=== PATIENT | female | born 1955 | race Caucasian/White ===

== ENCOUNTER 2019-12-17 17:34 | Emergency (ER) | payer OTHER ==
[~2019-12-17] VITALS: Ht 160 cm; Wt 90.9 kg
--- NOTE | 2019-12-17 17:54 | PHYS DOC ---
Past History Past Medical History: Anxiety, Depression, Hypertension, Migraines Past Surgical History: Cholecystectomy, Hysterectomy Alcohol Use: None General Adult EDM: Chief Complaint: HEADACHE HPI: HPI: " I am up here visiting with a friend and I got one of my migraine headaches...my BP is up ..and I am seeing spots...like when my BP get up to high..." " If I had one of my Clonidine or my nausea meds...I would have taken that.. It just I am up here from [facility]...." Patient is a 64 year old female who presents with above hx and complaints of headache. Patient states her headache is consistent with her occasional migraine headaches. Patient denies any specific fever or chills. No history of specific ill contacts. Recent travel from [facility]. No history of fever or chills. No history of trauma. No history of immunosuppression. Does have a history of chronic arthritis . Does have a history of chronic hypertension. Review of Systems: Review of Systems: Constitutional: Denies fever or chills Eyes: Denies change in visual acuity HENT: Denies nasal congestion or sore throat Respiratory: Denies cough or shortness of breath Cardiovascular: Denies chest pain or edema GI: Denies abdominal pain, , vomiting, bloody stools or diarrhea . Complains of nausea : Denies dysuria Musculoskeletal: Denies back pain or joint pain Integument: Denies rash Neurologic: Complains of 1 of her migraine headaches, denies focal weakness or sensory changes Endocrine: Denies polyuria or polydipsia Lymphatic: Denies swollen glands Psychiatric: Denies depression or anxiety Heart Score: HEART Score for Chest Pain: HEART Score for Chest Pain Response (Comments) Value History Slighlty/Non-Suspicious 0 Age >45 - < 65 1 Risk Factors 1 or 2 Risk Factors 1 Troponin < Normal Limit 0 Total 2 Risk Factors: Risk Factors: DM, Current or recent (<one month) smoker, HTN, HLP, family history of CAD, obesity. Risk Scores: Score 0 - 3: 2.5% MACE over next 6 weeks - Discharge Home Score 4 - 6: 20.3% MACE over next 6 weeks - Admit for Clinical Observation Score 7 - 10: 72.7% MACE over next 6 weeks - Early Invasive Strategies Family History: Family History: Noncontributory Current Medications: Current Meds: See nursing for home meds Allergies: Allergies: Allergies Coded Allergies Type Severity Reaction Last Updated Verified allopurinol Allergy Intermediate 12/17/19 Yes doxycycline Allergy Intermediate 12/17/19 Yes sulfamethoxazole Allergy Intermediate 12/17/19 Yes sumatriptan Allergy Intermediate ALLERGIC TO "TRIPTANS" 12/17/19 Yes trimethoprim Allergy Intermediate 12/17/19 Yes Physical Exam: PE: Constitutional: Moderate distress, non-toxic appearance. [] HENT: Normocephalic, atraumatic, bilateral external ears normal, oropharynx moist, no oral exudates, nose normal. [] Eyes: PERRLA, EOMI, conjunctiva normal, no discharge. Glasses Neck: Normal range of motion, no tenderness, supple, no stridor. [] Cardiovascular:Heart rate regular rhythm, no murmur [] PMI to the left Lungs & Thorax: Bilateral breath sounds equal at apex on aquscultation [] Abdomen: Bowel sounds normal, soft, no tenderness, no masses, no pulsatile masses. Obese Skin: Warm, dry, no erythema, no rash. [] Back: No tenderness, no CVA tenderness. [] Extremities: No tenderness, no cyanosis, no clubbing, ROM intact, trace ankle edema. [] No cording appreciated. Does have a right shoulder scar Neurologic: Alert and oriented X 3, n moves all extremities on request, distal sensory intact., no focal deficits noted. [] DTRs +2 patella. Terrazzo Tile Setter equal. No drift. Psychologic: Affect anxious, judgement normal, mood normal. [] Current Patient Data: Vital Signs: Vital Signs Date Time Temp Pulse Resp B/P (MAP) Pulse Ox O2 Delivery O2 Flow Rate FiO2 12/17/19 17:46 98.0 74 18 168/103 (124) 96 EKG: EKG: My interpretation EKG shows a sinus rhythm at 62 bpm. As slightly prolonged QT interval at 516 ms QTC is 527 ms . Left axis. No findings of acute STEMI with contralateral changes. [] Radiology/Procedures: Radiology/Procedures: [address] [address] IMAGING REPORT Signed PATIENT: NESHA JOHNSON Araceli ACCOUNT: [id number] : 1955 LOCATION: ER AGE: 64 SEX: F EXAM STATUS: REG ER ORD. PHYSICIAN: CHASE HILLMAN MD REASON: htn PROCEDURE: PORTABLE CHEST 1V AP portable chest 12/17/2019. Reason for exam: Hypertension. The film was obtained in lordotic projection. No infiltrate or effusion is seen. The heart appears enlarged. Pulmonary vascularity is not congested. There is been right shoulder replacement. IMPRESSION: Cardiomegaly. No acute infiltrate. Electronically signed by: Daniel Eduardo Jr., MD (12/17/2019 8:14 PM) [facility] DICTATED AND SIGNED BY: DANIEL EDUARDO Jr, MD DATE: 12/17/192013 CC: CHASE HILLMAN MD; PCP,NO ~ [][place] [address] IMAGING REPORT Signed PATIENT: NESHA JOHNSON ACCOUNT: [id number] : 1955 LOCATION: ER AGE: 64 SEX: F EXAM STATUS: REG ER ORD. PHYSICIAN: CHASE HILLMAN MD REASON: CHRISTINA,spotts PROCEDURE: CT HEAD WO CONTRAST CT head without contrast 12/17/2019. Reason for exam: Headache. Noncontrast images were performed. Exposure: One or more of the following individualized dose reduction techniques were utilized for this examination: 1. Automated exposure control 2. Adjustment of the mA and/or kV according to patient size 3. Use of iterative reconstruction technique. FINDINGS: There is no apparent intracranial mass, hemorrhage or abnormal extra-axial fluid collection. No area of abnormal density is seen in the brain. The ventricles and basilar cisterns are normally positioned. The paranasal sinuses and mastoid air cells are clear. No intraorbital abnormality is seen. IMPRESSION: No acute intracranial abnormality. Electronically signed by: Daniel Eduardo Jr., MD (12/17/2019 8:03 PM) [facility] DICTATED AND SIGNED BY: DANIEL EDUARDO Jr, MD DATE: 12/17/192002 CC: CHASE HILLMAN MD; PCP,NO ~ Course & Med Decision Making: Course & Med Decision Making Pertinent Labs and Imaging studies reviewed. (See chart for details) Pt. currently demanding discharge. Symptom free the last hour. Reviewed labs CT findings with patient. Patient declines admission at this time. States she will follow-up with her doctor in [place]. Patient was given prescription for Vicoprofen and Zofran. Patient may take Tylenol and ibuprofen for pain if pain is not controlled by Vicoprofen may try Vicoprofen. Take Zofran for nausea and vomiting. Patient return if any concerns. Patient declined spinal tap-ribs, complications and benefits discussed. Patient does exhibit UCAR capacity. Impression: 1. Migraine headache 2. Hypertension 3. History of arthritis 4. Elevated CRP 4.1 5.. [] Dragon Disclaimer: Dragon Disclaimer: This electronic medical record was generated, in whole or in part, using a voice recognition dictation system. Departure Departure: Disposition: HOME/RESIDENCE PRIOR TO ADM Condition: STABLE Referrals: PCP,NO (PCP) Scripts Hydrocodone/Ibuprofen (HYDROCODONE-IBUPROFEN 7.5-200 ) 1 Each Tablet 1 TAB PO PRN Q6HRS PRN for PAIN, #30 TAB 0 Refills Prov: CHASE HILLMAN MD 12/17/19 Ondansetron Hcl (ZOFRAN) 8 Mg Tablet 8 MG PO qidp for marked discomfort, #30 BOTTLE Prov: CHASE HILLMAN MD 12/17/19 Justification of Admission: Justification of Admission: Justification of Admission Dx: N/A Dragon Disclaimer This chart was dictated in whole or in part using Voice Recognition software in a busy, high-work load, and often noisy Emergency Department environment. It may contain unintended and wholly unrecognized errors or omissions. CHASE HILLMAN MD Dec 17, 2019 17:53
[2019-12-17] MEDS ORDERED: IV RINGERS SOLUTION,LACTATED 1,000 ML IV SCH (18:41)
[2019-12-17] MEDS ORDERED: cloNIDine TTS-2 1 PATCH PATCH TD ONE (18:45)
[2019-12-17] MEDS ORDERED: ONDANSETRON PF 4 MG/2 ML VIAL. IVP ONE (18:45)
[2019-12-17 19:20] LABS: BASO % 1 % (0-3); EOS # 0.1 x10^3/uL (0.0-0.7); EOS % 1 % (0-3); HEMOGLOBIN 11.4 g/dL (12.0-15.5); LYMPH # 2.6 x10^3/uL (1.0-4.8); LYMPH % 39 % (24-48); MEAN CORPUSCULAR HEMOGLOBIN 25 pg (25-35); MEAN CORPUSCULAR HGB CONC 32 g/dL (31-37); MEAN CORPUSCULAR VOLUME 79 fL (79-100); MONO # 0.6 x10^3/uL (0.0-1.1); MONO % 9 % (0-9); NEUT # 3.3 x10^3uL (1.8-7.7); NEUT % 50 % (31-73); PLATELET COUNT 285 x10^3/uL (140-400); RED BLOOD COUNT 4.54 x10^6/uL (3.50-5.40); RED CELL DISTRIBUTION WIDTH 15.8 % (11.5-14.5); WHITE BLOOD COUNT 6.5 x10^3/uL (4.0-11.0)
[2019-12-17 19:34] LABS: CALCIUM 8.6 mg/dL (8.5-10.1); GFR 56.2; POTASSIUM 3.4 mmol/L (3.5-5.1)
[2019-12-17 19:46] LABS: ALBUMIN 3.4 g/dL (3.4-5.0); C REACTIVE PROTEIN 4.1 mg/L (0-3.3); DIRECT BILIRUBIN 0.1 mg/dL (0.0-0.2); MAGNESIUM 2.1 mg/dL (1.8-2.4); TOTAL BILIRUBIN 0.2 mg/dL (0.2-1.0); TOTAL PROTEIN 7.3 g/dL (6.4-8.2)
--- NOTE | 2019-12-17 20:06 | RAD ---
CT head without contrast 12/17/2019. Reason for exam: Headache. Noncontrast images were performed. Exposure: One or more of the following individualized dose reduction techniques were utilized for this examination: 1. Automated exposure control 2. Adjustment of the mA and/or kV according to patient size 3. Use of iterative reconstruction technique. FINDINGS: There is no apparent intracranial mass, hemorrhage or abnormal extra-axial fluid collection. No area of abnormal density is seen in the brain. The ventricles and basilar cisterns are normally positioned. The paranasal sinuses and mastoid air cells are clear. No intraorbital abnormality is seen. IMPRESSION: No acute intracranial abnormality. Electronically signed by: Neto Eduardo Jr., MD (12/17/2019 8:03 PM) [facility]
[2019-12-17 20:07] LABS: AMPHETAMINE/METHAMPHETAMINE NEG (NEG); BARBITURATES NEG (NEG); BENZODIAZEPINES NEG (NEG); CANNABINOIDS NEG (NEG); COCAINE NEG (NEG); METHADONE NEG (NEG); OPIATES NEG (NEG); PHENCYCLIDINE NEG (NEG)
[2019-12-17 20:11] LABS: BACTERIA,URINE FEW /HPF (0-FEW); BILIRUBIN,URINE NEG (NEG); CLARITY,URINE HAZY; COLOR,URINE YELLOW; GLUCOSE,URINE NEG (NEG); NITRITE,URINE NEG (NEG); SQUAMOUS EPITHELIAL CELL,UR FEW /LPF; UROBILINOGEN,URINE 0.2 mg/dL (0.2 mg/dL)
--- NOTE | 2019-12-17 20:17 | RAD ---
AP portable chest 12/17/2019. Reason for exam: Hypertension. The film was obtained in lordotic projection. No infiltrate or effusion is seen. The heart appears enlarged. Pulmonary vascularity is not congested. There is been right shoulder replacement. IMPRESSION: Cardiomegaly. No acute infiltrate. Electronically signed by: Neto Eduardo Jr., MD (12/17/2019 8:14 PM) [facility]
--- NOTE | 2019-12-17 20:54 | EKG ---
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
[2019-12-17] MEDS ORDERED: cloNIDine HCL 0.1 MG TABLET PO ONE (22:00)
[2019-12-17] MEDS ORDERED: HYDR-1179 PO (22:11)
[2019-12-17] MEDS ORDERED: ONDA8TAB9 PO (22:11)
[2019-12-17 22:19] VITALS: BP 156/87
[2019-12-18 13:46] LABS: THYROID STIM HORMONE (TSH) 2.937 uIU/mL (0.358-3.740)
== END 2019-12-17 22:22 | disposition home or self-care (01) ==
LOC: ER 17:34
DX: G43.909 Migraine, unspecified, not intractable, without status migrainosus (principal); I10 Essential (primary) hypertension; R79.82 Elevated C-reactive protein (CRP); M19.90 Unspecified osteoarthritis, unspecified site; F41.9 Anxiety disorder, unspecified; F32.9 Major depressive disorder, single episode, unspecified; Z88.2 Allergy status to sulfonamides; Z88.1 Allergy status to other antibiotic agents; Z88.8 Allergy status to other drugs, medicaments and biological substances
CPT/HCPCS: 36415; 70450; 71045; 80048; 80061; 80076; 80307; 81001; 82550; 83690; 83735; 83880; 84443; 84484; 85025; 85610; 85730; 86140; 87086; 93005; 96361; 96374; 96375; 96376; 99285; J2405; J3010; J7120

== ENCOUNTER 2021-03-23 08:59 | Emergency (ER) | payer MEDICARE, OTHER ==
[~2021-03-23] VITALS: Ht 160 cm; Wt 91.0 kg
[~2021-03-23 08:59] MED LIST: HYDR-1179 PO; ONDA8TAB9 PO
[2021-03-23 09:08] VITALS: BP 153/97
--- NOTE | 2021-03-23 09:30 | PHYS DOC ---
Past History Past Medical History: Anxiety, Depression, Hypertension, Migraines Past Surgical History: Cholecystectomy, Hysterectomy Additional Past Surgical Histo: right shoulder surgery Alcohol Use: None General Adult EDM: Chief Complaint: HAND PROBLEM HPI: HPI: Patient is a 62-year-old female coming in for right hand pain and swelling. Patient tripped over her dog 3 days ago and tried to catch herself with her right hand. Denies any other injuries. Patient has good ice to the head but the swelling is getting worse. No other complaints, patient is right-handed Review of Systems: Review of Systems: All other systems within normal limits except for as noted in the HPI Allergies: Allergies: Allergies Coded Allergies Type Severity Reaction Last Updated Verified allopurinol Allergy Intermediate 12/17/19 Yes doxycycline Allergy Intermediate 12/17/19 Yes sulfamethoxazole Allergy Intermediate 12/17/19 Yes sumatriptan Allergy Intermediate ALLERGIC TO "TRIPTANS" 12/17/19 Yes trimethoprim Allergy Intermediate 12/17/19 Yes Physical Exam: PE: Constitutional: Well developed, well nourished, no acute distress, non-toxic appearance. [] HENT: Normocephalic, atraumatic, bilateral external ears normal, nose normal. [] Eyes: PERRLA, conjunctiva normal, no discharge. [] Neck: No rigidity, supple, no stridor. [] Cardiovascular: Regular rate and rhythm, brisk cap refill [] Lungs & Thorax: Non labored symmetric respirations, no tachypnea or respiratory distress [] Abdomen: Soft, nondistended. Skin: Warm, dry, no erythema, no rash. Ecchymosis to the ulnar side of right hand [] Back: Unremarkable Extremities: No deformities, range of motion grossly intact, no lower extremity edema. Right hand exam: Swelling diffusely to right hand and wrist, tenderness to palpation throughout, sensation and range of motion intact [] Neurologic: Alert and oriented X 3, no focal deficits noted. [] Psychologic: Affect normal, judgement normal, mood normal. [] Current Patient Data: Vital Signs: Vital Signs Date Time Temp Pulse Resp B/P (MAP) Pulse Ox O2 Delivery O2 Flow Rate FiO2 03/23/21 09:08 98.4 79 16 153/97 (115) 98 Room Air EKG: EKG: [] Radiology/Procedures: Radiology/Procedures: [address] [place] [address] IMAGING REPORT Signed PATIENT: NESHA JOHNSON ACCOUNT: [id number] : 1955 LOCATION: ER AGE: 65 SEX: F EXAM STATUS: REG ER ORD. PHYSICIAN: MELANIA HERNANDES MD REASON: fall PROCEDURE: HAND RIGHT 3V EXAM: Right hand, 3 views; right forearm, 2 views. HISTORY: Fall. Pain. COMPARISON: None. FINDINGS: Right hand: 3 views of the right hand are obtained. There is lucency traversing the base of the second or third metacarpal in the lateral projection. This is not confirmed on additional projections. There is a mildly displaced fracture of the distal fifth metacarpal. There is dorsal hand soft tissue swelling. There is first carpometacarpal joint space narrowing, subchondral sclerosis and spurring. Right forearm: 2 views of the right forearm are obtained. There is no fracture, dislocation or subluxation. There is soft tissue swelling. IMPRESSION: 1. Mildly displaced fracture of the distal fifth metacarpal. 2. Suspected nondisplaced fracture at the base of the third or second metacarpals in the lateral projection. Correlate for pain in this location. 3. Dorsal hand and forearm soft tissue swelling. Electronically signed by: Tarah Ruth MD (03/23/2021 9:53 AM) [id number] DICTATED AND SIGNED BY: TARAH RUTH MD DATE: 03/23/21 0950 CC: MELANIA HERNANDES MD; PCP,NO ~MTH0 0 [] Heart Score: C/O Chest Pain: No Risk Factors: Risk Factors: DM, Current or recent (<one month) smoker, HTN, HLP, family history of CAD, obesity. Risk Scores: Score 0 - 3: 2.5% MACE over next 6 weeks - Discharge Home Score 4 - 6: 20.3% MACE over next 6 weeks - Admit for Clinical Observation Score 7 - 10: 72.7% MACE over next 6 weeks - Early Invasive Strategies Course & Med Decision Making: Course & Med Decision Making Pertinent Labs and Imaging studies reviewed. (See chart for details) [] Draggerald Disclaimer: Draggerald Disclaimer: This electronic medical record was generated, in whole or in part, using a voice recognition dictation system. Departure Departure: Impression: Primary Impression: Fracture of metacarpal of right hand, closed Disposition: HOME / SELF CARE / HOMELESS Condition: STABLE Referrals: WALESKA GIPSON Jr. DO Patient Instructions: Hand Fracture, Fifth Metacarpal Scripts Acetaminophen With Codeine (ACETAMINOPHEN-COD #3 TABLET) 1 Each Tablet 1 TAB PO PRN Q6HRS PRN for PAIN for 3 Days, #12 TAB Prov: MELANIA HERNANDES MD 03/23/21 MELANIA HERNANDES MD Mar 23, 2021 09:30
--- NOTE | 2021-03-23 09:55 | RAD ---
EXAM: Right hand, 3 views; right forearm, 2 views. HISTORY: Fall. Pain. COMPARISON: None. FINDINGS: Right hand: 3 views of the right hand are obtained. There is lucency traversing the base of the secon d or third metacarpal in the lateral projection. This is not confirmed on additional projections. The re is a mildly displaced fracture of the distal fifth metacarpal. There is dorsal hand soft tissue sw elling. There is first carpometacarpal joint space narrowing, subchondral sclerosis and spurring. Right forearm: 2 views of the right forearm are obtained. There is no fracture, dislocation or sublux ation. There is soft tissue swelling. IMPRESSION: 1. Mildly displaced fracture of the distal fifth metacarpal. 2. Suspected nondisplaced fracture at the base of the third or second metacarpals in the lateral proj ection. Correlate for pain in this location. 3. Dorsal hand and forearm soft tissue swelling. Electronically signed by: Tarah Gong MD (03/23/2021 9:53 AM) [id number]
[2021-03-23] MEDS ORDERED: ACET1TAB33 PO (10:09)
[2021-03-23] MEDS ORDERED: HYDROcodone/APAP 5/325MG 1 TAB TABLET PO ONE (10:30)
[2021-03-23] MEDS ORDERED: HYDROcodone/APAP 5/325MG 1 TAB TABLET ONE (10:39)
== END 2021-03-23 10:56 | disposition home or self-care (01) ==
LOC: ER 08:59
DX: S62.306A Unspecified fracture of fifth metacarpal bone, right hand, initial encounter for closed fracture (principal); F41.9 Anxiety disorder, unspecified; F32.9 Major depressive disorder, single episode, unspecified; I10 Essential (primary) hypertension; G43.909 Migraine, unspecified, not intractable, without status migrainosus; Z88.1 Allergy status to other antibiotic agents; Z88.2 Allergy status to sulfonamides; Z88.8 Allergy status to other drugs, medicaments and biological substances; W01.0XXA Fall on same level from slipping, tripping and stumbling without subsequent striking against object, initial encounter; Y93.89 Activity, other specified; Y92.89 Other specified places as the place of occurrence of the external cause; Y99.8 Other external cause status
CPT/HCPCS: 29125; 73090; 73130; 99283

== ENCOUNTER 2021-03-28 15:12 | Emergency (ER) | payer MEDICARE ==
[~2021-03-28] VITALS: Ht 160 cm; Wt 91.0 kg
[~2021-03-28 15:12] MED LIST changes: +ACET1TAB33 PO
[2021-03-28 16:11] VITALS: BP 153/97
--- NOTE | 2021-03-28 16:14 | PHYS DOC ---
Past History Past Medical History: Anxiety, Depression, Hypertension, Migraines Past Surgical History: Cholecystectomy, Hysterectomy Additional Past Surgical Histo: right shoulder surgery Alcohol Use: None Adult General Chief Complaint Chief Complaint: PAIN CONTROL HPI HPI Patient is a 65-year-old female presenting via POV for uncontrolled pain. She was seen at our facility 03/23/2021 after tripping over her dog and suffered multiple fractures of her right hand. She was given Tylenol 3 prescription with adequate splint and sent home. She took all medications as prescribed but co ntinues to report uncontrolled pain even while taking this medication. Motor or sensory neuro function of right upper extremity is intact, patient just reports ongoing uncontrolled pain and requesting additional pain medication as Tylenol and/or ibuprofen has not been sufficiently alleviating her symptoms Review of Systems Review of Systems Fourteen body systems of review of systems have been reviewed. See HPI for pertinent positives and negative responses, other king all other systems are negative, non-pertinent or non-contributory Allergies Allergies Allergies Coded Allergies Type Severity Reaction Last Updated Verified allopurinol Allergy Intermediate 12/17/19 Yes doxycycline Allergy Intermediate 12/17/19 Yes sulfamethoxazole Allergy Intermediate 12/17/19 Yes sumatriptan Allergy Intermediate ALLERGIC TO "TRIPTANS" 12/17/19 Yes trimethoprim Allergy Intermediate 12/17/19 Yes Physical Exam Physical Exam Constitutional: Well developed, well nourished, no acute distress, non-toxic appearance. HENT: Normocephalic, atraumatic, bilateral external ears normal, oropharynx moist, no oral exudates, nose normal. Eyes: PERRLA, EOMI, conjunctiva normal, no discharge. Neck: Normal range of motion, no tenderness, supple, no stridor. Cardiovascular: Heart rate regular per monitor Lungs & Thorax: No respiratory distress or accessory muscle use, bilateral chest rise Abdomen: Abdomen soft, non-tender, bowel sounds present in all quadrants, no guarding or rebound, nonacute abdomen. Skin: Warm, dry, no erythema, no rash. Back: No tenderness, no CVA tenderness. Extremities: Well-appearing right upper extremity short arm splint with adequate motor or sensory and neuro function as noted below, cap refill of all distal fingers less than 3 seconds, no cyanosis, no clubbing, ROM intact, no edema. Neurologic: Alert and oriented X 3, normal motor & sensory function, no focal deficits noted. Psychologic: Depressed affect and mood EKG EKG [] Radiology/Procedures Radiology/Procedures EXAM: Right hand, 3 views; right forearm, 2 views. HISTORY: Fall. Pain. COMPARISON: None. FINDINGS: Right hand: 3 views of the right hand are obtained. There is lucency traversing the base of the second or third metacarpal in the lateral projection. This is not confirmed on additional projections. There is a mildly displaced fracture of the distal fifth metacarpal. There is dorsal hand soft tissue swelling. There is first carpometacarpal joint space narrowing, subchondral sclerosis and spurring. Right forearm: 2 views of the right forearm are obtained. There is no fracture, dislocation or subluxation. There is soft tissue swelling. IMPRESSION: 1. Mildly displaced fracture of the distal fifth metacarpal. 2. Suspected nondisplaced fracture at the base of the third or second metacarpals in the lateral projection. Correlate for pain in this location. 3. Dorsal hand and forearm soft tissue swelling. Electronically signed by: Tarah Gong MD (03/23/2021 9:53 AM) [id number] Heart Score C/O Chest Pain: No Risk Factors: Risk Factors: DM, Current or recent (<one month) smoker, HTN, HLP, family history of CAD, obesity. Risk Scores: Risk Factors: DM, Current or recent (<one month) smoker, HTN, HLP, family history of CAD, obesity. Course & Med Decision Making Course & Med Decision Making ABCs unremarkable HPI and physical exam nonconcerning for any emergent or surgical issues I reviewed recent ER visit notes and radiograph findings. I feel that patient's complaint is legitimate, I feel that more narcotic pain medication is warranted especially given the type of fracture she sustained with ongoing uncontrolled pain Joint decision made to administer short-term dose of [place] with close outpatient primary care provider follow-up with recommendations for Ortho consultation which she has yet to schedule Strict return precautions were discussed with good understanding by patient, all questions and concerns addressed prior to ER departure Sarah Disclaimer Dragon Disclaimer This electronic medical record was generated, in whole or in part, using a voice recognition dictation system. Departure Departure: Impression: Primary Impression: Hand fracture, right Disposition: HOME / SELF CARE / HOMELESS Condition: STABLE Referrals: PCP,NO (PCP) Additional Instructions: As discussed prior to your departure, you were recently diagnosed with mildly displaced fracture of your right distal pinky finger in addition to a suspected nondisplaced fracture at the base of your second and/or third metacarpals. There is no emergent surgical indications or need for hospital transfer. With that said your pain is uncontrolled and has been with previously prescribed medications. As such, risk versus benefits were discussed with you and you are excepting my prescription for opioid pain medication. Please take these as scheduled for severe pain only when ibuprofen and/or Tylenol is not sufficiently helping. Any concerning signs or symptoms present prior to outpatient follow- up please do not hesitate to come back for repeat evaluation. It was a pleasure to take care of you and I wish you the best going forward Scripts Hydrocodone Bit/Acetaminophen (HYDROCODONE-APAP 7.5-325 ) 1 Each Tablet 1 TAB PO PRN Q6HRS PRN for PAIN, #20 TAB 0 Refills Prov: DAYANA DIAZ DO 03/28/21 DAYANA DIAZ DO Mar 28, 2021 16:14
[2021-03-28] MEDS ORDERED: HYDROcodone/APAP 7.5/325MG 1 TAB TABLET PO ONE (16:30)
[2021-03-28] MEDS ORDERED: HYDR-2765 PO (16:30)
== END 2021-03-28 16:58 | disposition home or self-care (01) ==
LOC: ER 15:20
DX: S62.306A Unspecified fracture of fifth metacarpal bone, right hand, initial encounter for closed fracture (principal); I10 Essential (primary) hypertension; G43.909 Migraine, unspecified, not intractable, without status migrainosus; Z88.1 Allergy status to other antibiotic agents; Z88.2 Allergy status to sulfonamides; Z88.8 Allergy status to other drugs, medicaments and biological substances; W01.0XXA Fall on same level from slipping, tripping and stumbling without subsequent striking against object, initial encounter; Y93.89 Activity, other specified; Y92.89 Other specified places as the place of occurrence of the external cause; Y99.8 Other external cause status
CPT/HCPCS: 29125; 99283

== ENCOUNTER 2021-04-06 15:49 | Emergency (ER) | payer MEDICARE ==
[~2021-04-06] VITALS: Ht 160 cm; Wt 94.0 kg
[~2021-04-06 15:49] MED LIST changes: +HYDR-2765 PO
--- NOTE | 2021-04-06 16:25 | PHYS DOC ---
Past History Past Medical History: Anxiety, Depression, Hypertension, Migraines Past Surgical History: Cholecystectomy, Hysterectomy Additional Past Surgical Histo: right shoulder surgery Alcohol Use: None General Adult EDM: Chief Complaint: HEADACHE HPI: HPI: 65-year-old female presents with headache. She has had a headache for 2 days. She has a history of migraines and this headache feels similar to her previous. She has been unable to keep down fluids because she has been vomiting. If she tries to lay down or move around too much she gets nauseated and her headache intensifies. She denies any falls or trauma. Denies fever or chills. Review of Systems: Review of Systems: Constitutional: Denies fever or chills Eyes: Denies change in visual acuity HENT: Denies nasal congestion or sore throat Respiratory: Denies cough or shortness of breath Cardiovascular: Denies chest pain or edema GI: Nausea, vomiting. Denies abdominal pain, bloody stools or diarrhea : Denies dysuria Musculoskeletal: Denies back pain or joint pain Integument: Denies rash Neurologic: Headache. Denies focal weakness or sensory changes Endocrine: Denies polyuria or polydipsia Lymphatic: Denies swollen glands Psychiatric: Denies depression or anxiety Allergies: Allergies: Allergies Coded Allergies Type Severity Reaction Last Updated Verified allopurinol Allergy Intermediate 12/17/19 Yes doxycycline Allergy Intermediate 12/17/19 Yes sulfamethoxazole Allergy Intermediate 12/17/19 Yes sumatriptan Allergy Intermediate ALLERGIC TO "TRIPTANS" 12/17/19 Yes trimethoprim Allergy Intermediate 12/17/19 Yes Physical Exam: PE: Constitutional: Well developed, well nourished, morbidly obese, no acute distress, non-toxic appearance. [] HENT: Normocephalic, atraumatic, bilateral external ears normal, oropharynx moist, no oral exudates, nose normal. [] Eyes: PERRLA, EOMI, conjunctiva normal, no discharge. Photophobia. [] Neck: Normal range of motion, no tenderness, supple, no stridor. [] Cardiovascular: Heart rate regular rhythm, no murmur [] Lungs & Thorax: Bilateral breath sounds clear to auscultation [] Abdomen: Bowel sounds normal, soft, no tenderness, no masses, no pulsatile masses. [] Skin: Warm, dry, no erythema, no rash. [] Back: No tenderness, no CVA tenderness. [] Extremities: No tenderness, no cyanosis, no clubbing, ROM intact, no edema. Right hand and forearm in a splint. [] Neurologic: Alert and oriented X 3, normal motor function, normal sensory function, no focal deficits noted. [] Psychologic: Affect normal, judgement normal, mood normal. [] EKG: EKG: [] Radiology/Procedures: Radiology/Procedures: [] Heart Score: C/O Chest Pain: N/A Risk Factors: Risk Factors: DM, Current or recent (<one month) smoker, HTN, HLP, family history of CAD, obesity. Risk Scores: Score 0 - 3: 2.5% MACE over next 6 weeks - Discharge Home Score 4 - 6: 20.3% MACE over next 6 weeks - Admit for Clinical Observation Score 7 - 10: 72.7% MACE over next 6 weeks - Early Invasive Strategies Course & Med Decision Making: Course & Med Decision Making Pertinent Labs and Imaging studies reviewed. (See chart for details) The patient's labs are unremarkable. Urinalysis significant for urinary tract infection. I will treat her with a gram of Rocephin in the ER and discharge her on Keflex. For her headache we have given her 1 L normal saline, 30 mg of Toradol, 25 mg Benadryl, 10 mg of Reglan. Her headache has improved. She is stable for discharge at this time. [] Sarah Disclaimer: Sarah Disclaimer: This electronic medical record was generated, in whole or in part, using a voice recognition dictation system. Departure Departure: Impression: Primary Impression: Migraine headache Additional Impression: UTI (urinary tract infection) Disposition: HOME / SELF CARE / HOMELESS Condition: STABLE Referrals: NON,STAFF (PCP) Patient Instructions: Migraine Headache, [id number], Urinary Tract Infection, Izyb-oy-Xdez Scripts Cephalexin (CEPHALEXIN) 500 Mg Tablet 1 TAB PO TID for UTI for 3 Days, #9 TAB Prov: ELLIS HUGHES DO 04/06/21 ELLIS HUGHES DO Apr 06, 2021 16:25
[2021-04-06] MEDS ORDERED: ONDANSETRON PF 4 MG/2 ML VIAL. IVP ONE (16:30)
[2021-04-06] MEDS ORDERED: KETOROLAC 30 MG/ML VIAL. IVP ONE (16:30)
[2021-04-06] MEDS ORDERED: diphenhydrAMINE 50 MG/ML VIAL IVP ONE (16:30)
[2021-04-06] MEDS ORDERED: IV NORMAL SALINE 1,000ML 1,000 ML IV ONE (16:30)
[2021-04-06 17:07] LABS: BASO # 0.1 x10^3/uL (0.0-0.2); BASO % 1 % (0-3); EOS # 0.1 x10^3/uL (0.0-0.7); EOS % 1 % (0-3); HEMATOCRIT 38.2 % (36.0-47.0); HEMOGLOBIN 12.7 g/dL (12.0-15.5); LYMPH # 2.5 x10^3/uL (1.0-4.8); LYMPH % 33 % (24-48); MEAN CORPUSCULAR HEMOGLOBIN 29 pg (25-35); MEAN CORPUSCULAR HGB CONC 33 g/dL (31-37); MEAN CORPUSCULAR VOLUME 87 fL (79-100); MONO # 0.8 x10^3/uL (0.0-1.1); MONO % 10 % (0-9); NEUT # 4.2 x10^3uL (1.8-7.7); NEUT % 55 % (31-73); PLATELET COUNT 278 x10^3/uL (140-400); RED BLOOD COUNT 4.39 x10^6/uL (3.50-5.40); RED CELL DISTRIBUTION WIDTH 14.1 % (11.5-14.5); WHITE BLOOD COUNT 7.6 x10^3/uL (4.0-11.0)
[2021-04-06 17:12] LABS: BACTERIA,URINE MOD /HPF (0-FEW); BILIRUBIN,URINE NEG (NEG); CLARITY,URINE CLEAR; COLOR,URINE YELLOW; GLUCOSE,URINE NEG (NEG); NITRITE,URINE NEG (NEG); RBC,URINE OCC /HPF (0-2); UROBILINOGEN,URINE 0.2 mg/dL (0.2 mg/dL); WBC,URINE >40 /HPF (0-4)
[2021-04-06 17:12] LABS: CALCIUM 8.6 mg/dL (8.5-10.1); CREATININE 0.9 mg/dL (0.6-1.0); GFR 63.2; POTASSIUM 3.6 mmol/L (3.5-5.1)
[2021-04-06 17:13] LABS: SQUAMOUS EPITHELIAL CELL,UR MANY /LPF
[2021-04-06 17:18] LABS: ALBUMIN 3.8 g/dL (3.4-5.0); TOTAL BILIRUBIN 0.3 mg/dL (0.2-1.0); TOTAL PROTEIN 7.8 g/dL (6.4-8.2)
[2021-04-06] MEDS ORDERED: CEPH500T PO (17:46)
[2021-04-06] MEDS ORDERED: IV NORMAL SALINE 50ML 50 ML ONE (18:05)
[2021-04-06] MEDS ORDERED: cefTRIAXone SODIUM 1 GM VIAL ONE (18:06)
[2021-04-06] MEDS ORDERED: MORPHINE SULFATE 4 MG/ML DISP.SYRIN. IV ONE (18:15)
[2021-04-06 18:40] VITALS: BP 138/84
== END 2021-04-06 18:45 | disposition home or self-care (01) ==
LOC: ER 15:49
DX: G43.909 Migraine, unspecified, not intractable, without status migrainosus (principal); N39.0 Urinary tract infection, site not specified; I10 Essential (primary) hypertension; F41.9 Anxiety disorder, unspecified; F32.9 Major depressive disorder, single episode, unspecified; Z88.1 Allergy status to other antibiotic agents; Z88.8 Allergy status to other drugs, medicaments and biological substances
CPT/HCPCS: 36415; 80053; 81001; 85025; 87086; 96361; 96365; 96375; 99284; J0696; J1200; J1885; J2270; J2405; J7030

== ENCOUNTER 2021-04-09 15:09 | Emergency (ER) | payer MEDICARE ==
[~2021-04-09] VITALS: Ht 160 cm; Wt 92.0 kg
[~2021-04-09 15:09] MED LIST changes: +CEPH500T PO
--- NOTE | 2021-04-09 19:41 | PHYS DOC ---
Past History Past Medical History: Anxiety, Depression, Hypertension, Migraines Past Surgical History: Cholecystectomy, Hysterectomy Additional Past Surgical Histo: right shoulder surgery Alcohol Use: None Adult General Chief Complaint Chief Complaint: HEADACHE HPI HPI Patient is a 65-year-old female with a past medical history of migraines who presents with a chief complaint of migraine which started this morning after breakfast. States she gets about 2 migraines a week and this is similar in the fact that it is whole head, dull and achy in nature with some mild nausea but no vomiting. Denies any photophobia or phonophobia. States she did not take any medicines at home for this. Denies any recent travel, traumas, illnesses, fevers, changes in vision, Covid/flu symptoms, chest pain, shortness of breath, abdominal pain, vomiting, dysuria, hematuria or blood in the stool. Denies any numbness/weakness/tingling. Denies any trouble sitting, standing or walking. States that she thinks that opioids work really good for headaches and requested some. Review of Systems Review of Systems Review of systems otherwise unremarkable except noted in HPI. Allergies Allergies Allergies Coded Allergies Type Severity Reaction Last Updated Verified allopurinol Allergy Intermediate 04/06/21 Yes doxycycline Allergy Intermediate 04/06/21 Yes sulfamethoxazole Allergy Intermediate 04/06/21 Yes sumatriptan Allergy Intermediate ALLERGIC TO "TRIPTANS" 04/06/21 Yes trimethoprim Allergy Intermediate 04/06/21 Yes Uncoded Allergies Type Severity Reaction Last Updated Verified PECANS Allergy Unknown 04/06/21 Physical Exam Physical Exam Constitutional: Well developed, well nourished, no acute distress, non-toxic appearance. [] HENT: Normocephalic, atraumatic, bilateral external ears normal, oropharynx moist, no oral exudates, nose normal. [] Eyes: PERRLA, EOMI, conjunctiva normal, no discharge. [] Neck: Normal range of motion, no tenderness, supple, no stridor. [] Cardiovascular:Heart rate regular rhythm, no murmur [] Lungs & Thorax: Bilateral breath sounds clear to auscultation [] Skin: Warm, dry, no erythema, no rash. [] Back: No tenderness, no CVA tenderness. [] Extremities: No tenderness, no cyanosis, no clubbing, ROM intact, no edema. [] Neurologic: Alert and oriented X 3, normal motor function, normal sensory function, able to sit, stand and walk without issue no focal deficits noted. [] Psychologic: Affect normal, judgement normal, mood normal. [] EKG EKG [] Radiology/Procedures Radiology/Procedures [] Heart Score C/O Chest Pain: No Risk Factors: Risk Factors: DM, Current or recent (<one month) smoker, HTN, HLP, family history of CAD, obesity. Risk Scores: Risk Factors: DM, Current or recent (<one month) smoker, HTN, HLP, family history of CAD, obesity. Course & Med Decision Making Course & Med Decision Making Patient is a 65-year-old female who presents with a chief complaint of migraine Vital signs notable for hypertension. Physical exam noted above. Given migraine cocktail. On reassessment patient states she was feeling better and ready to be discharged home. Discussed symptom management at home and given recommendations. Advised to follow-up in the morning with primary care physician update on ED visit and set up a follow-up visit. Gave return precautions to the ED. Patient grateful, verbalized understanding and agreed with plan of discharge. Dragon Disclaimer Dragon Disclaimer This electronic medical record was generated, in whole or in part, using a voice recognition dictation system. Departure Departure: Impression: Primary Impression: Headache Disposition: HOME / SELF CARE / HOMELESS Condition: GOOD Referrals: NON,STAFF (PCP) EVELYN JORGENSEN Patient Instructions: General Headache Without Cause, Migraine Headache Additional Instructions: Thanks for coming into the emergency department tonight and allowing us to take care of you. Please read the attached information carefully to go back over some of the things we discussed. As long as you can tolerate it please begin a Tylenol, ibuprofen and Benadryl regimen at home every 8 hours as we discussed. It is very important you follow-up in the morning with your primary care physician to discuss your headaches and get headache management medications for home and any other evaluation or treatment your primary care physician feels you need. Please come back with new or concerning symptoms as discussed. MARY STEWARD MD Apr 09, 2021 19:41
[2021-04-09] MEDS: ONDANSETRON ODT 4 MG TAB.RAPDIS PO ONE (19:56)
[2021-04-09] MEDS: diphenhydrAMINE HCL 25 MG CAPSULE PO ONE (19:58)
[2021-04-09] MEDS: METOCLOPRAMIDE HCL 10 MG/2 ML VIAL. IM ONE (19:59)
[2021-04-09] MEDS: KETOROLAC 30 MG/ML VIAL. IM ONE (20:01)
[2021-04-09 20:14] VITALS: BP 175/106
[2021-04-09] MEDS: oxyCODONE IR 5 MG TABLET PO PRN (20:26)
== END 2021-04-09 20:29 | disposition home or self-care (01) ==
LOC: ER 15:09
DX: G43.909 Migraine, unspecified, not intractable, without status migrainosus (principal); F41.9 Anxiety disorder, unspecified; F32.9 Major depressive disorder, single episode, unspecified; I10 Essential (primary) hypertension; Z88.1 Allergy status to other antibiotic agents; Z88.2 Allergy status to sulfonamides; Z88.8 Allergy status to other drugs, medicaments and biological substances
CPT/HCPCS: 96372; 99283; 99284; J1885; J2765; Q0162; Q0163

== ENCOUNTER 2021-04-15 11:26 | Emergency (ER) | payer MEDICARE ==
[~2021-04-15] VITALS: Ht 160 cm; Wt 92.0 kg
--- NOTE | 2021-04-15 11:42 | EKG ---
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
--- NOTE | 2021-04-15 11:42 | PHYS DOC ---
Past History Past Medical History: Anxiety, Depression, Hypertension, Migraines Past Surgical History: Cholecystectomy, Hysterectomy Additional Past Surgical Histo: right shoulder surgery Alcohol Use: None General Adult EDM: Chief Complaint: CHEST WALL PAIN HPI: HPI: 65-year-old female presents with chest pain. Patient started to have chest pain around 930 this morning. She was not doing anything in particular. The pain is a central chest pressure. It is currently an 8 out of 10. She decided to come to the emergency room because her blood pressure was 200s over 110s. She had c alled her primary care physician in [place] where she lives and he/she the emergency room. Patient used to have high blood pressure and took medication but she was getting hypotensive so she was taken off of her hypertension medication. Patient has no history of cardiac disease. She had a recent echocardiogram which was normal. She denies shortness of breath or diaphoresis. Nothing seems to make the pain better or worse. Review of Systems: Review of Systems: Constitutional: Denies fever or chills Eyes: Denies change in visual acuity HENT: Denies nasal congestion or sore throat Respiratory: Denies cough or shortness of breath Cardiovascular: Denies chest pain or edema GI: Denies abdominal pain, nausea, vomiting, bloody stools or diarrhea : Denies dysuria Musculoskeletal: Denies back pain or joint pain Integument: Denies rash Neurologic: Denies headache, focal weakness or sensory changes Endocrine: Denies polyuria or polydipsia Lymphatic: Denies swollen glands Psychiatric: Denies depression or anxiety Allergies: Allergies: Allergies Coded Allergies Type Severity Reaction Last Updated Verified allopurinol Allergy Intermediate 04/06/21 Yes doxycycline Allergy Intermediate 04/06/21 Yes sulfamethoxazole Allergy Intermediate 04/06/21 Yes sumatriptan Allergy Intermediate ALLERGIC TO "TRIPTANS" 04/06/21 Yes trimethoprim Allergy Intermediate 04/06/21 Yes Uncoded Allergies Type Severity Reaction Last Updated Verified PECANS Allergy Unknown 04/06/21 Physical Exam: PE: Constitutional: Well developed, well nourished, no acute distress, non-toxic appearance. [] HENT: Normocephalic, atraumatic, bilateral external ears normal, oropharynx moist, no oral exudates, nose normal. [] Eyes: PERRLA, EOMI, conjunctiva normal, no discharge. [] Neck: Normal range of motion, no tenderness, supple, no stridor. [] Cardiovascular:Heart rate regular rhythm, no murmur [] Lungs & Thorax: Bilateral breath sounds clear to auscultation [] Abdomen: Bowel sounds normal, soft, no tenderness, no masses, no pulsatile masses. [] Skin: Warm, dry, no erythema, no rash. [] Back: No tenderness, no CVA tenderness. [] Extremities: No tenderness, no cyanosis, no clubbing, ROM intact, no edema. [] Neurologic: Alert and oriented X 3, normal motor function, normal sensory function, no focal deficits noted. [] Psychologic: Affect normal, judgement normal, mood normal. [] EKG: EKG: Sinus rhythm, rate 62, leftward axis, no ST elevation or depression. [] Radiology/Procedures: Radiology/Procedures: [] Impressions: Single AP view of the chest. Comparison: 12/17/2019. Indication: Chest pain and nausea Findings: Stable right humeral arthroplasty. The heart is markedly enlarged but stable, the aorta is tortuous. There is no pneumothorax or effusion. No air space or interstitial disease. Impression: 1. No acute cardiopulmonary process. Electronically signed by: Vamsi Stinson MD (04/15/2021 12:10 PM) [id number] DICTATED AND SIGNED BY: VAMSI STINSON MD DATE: 04/15/21 1210 CC: ELLIS HUGHES DO; NON,STAFF ~MTH0 0 Heart Score: C/O Chest Pain: Yes HEART Score for Chest Pain: HEART Score for Chest Pain Response (Comments) Value History Moderately Suspicious 1 ECG Normal 0 Age >45 - < 65 1 Risk Factors 1 or 2 Risk Factors 1 Total 3 Risk Factors: Risk Factors: DM, Current or recent (<one month) smoker, HTN, HLP, family history of CAD, obesity. Risk Scores: Score 0 - 3: 2.5% MACE over next 6 weeks - Discharge Home Score 4 - 6: 20.3% MACE over next 6 weeks - Admit for Clinical Observation Score 7 - 10: 72.7% MACE over next 6 weeks - Early Invasive Strategies Course & Med Decision Making: Course & Med Decision Making Pertinent Labs and Imaging studies reviewed. (See chart for details) The patient's labs are unremarkable. Her EKG is negative for acute findings. Her troponin is negative. Chest x-ray is negative for acute findings. I have given her 0.1 of clonidine for her blood pressure. She is also given 324 of aspirin. Urinalysis is negative for infection. Second troponin is negative. This does not appear to be cardiopulmonary in nature. The patient has somewhat improved blood pressure, but is still elevated above normal. I have advised that she monitor this for the next several days. I will give her a short course of losartan 25 mg while she is here visiting. She is stable for discharge at this time. [] Dragon Disclaimer: Draggerald Disclaimer: This electronic medical record was generated, in whole or in part, using a voice recognition dictation system. Departure Departure: Impression: Primary Impression: Chest pain Qualified Codes: R07.89 - Other chest pain Additional Impression: Hypertension Qualified Codes: I10 - Essential (primary) hypertension Disposition: HOME / SELF CARE / HOMELESS Condition: STABLE Referrals: NON,STAFF (PCP) Patient Instructions: Chest Pain (Nonspecific), Hlje-yk-Nodv, Hypertension, Nuru-kn-Site Scripts Losartan Potassium (LOSARTAN POTASSIUM ) 25 Mg Tablet 25 MG PO DAILY for HYPERTENSION for 14 Days, #14 TAB Prov: ELLIS HUGHES DO 04/15/21 ELLIS HUGHES DO Apr 15, 2021 11:41
--- NOTE | 2021-04-15 12:13 | RAD ---
Single AP view of the chest. Comparison: 12/17/2019. Indication: Chest pain and nausea Findings: Stable right humeral arthroplasty. The heart is markedly enlarged but stable, the aorta is tortuous. There is no pneumothorax or effusion. No air space or interstitial disease. Impression: 1. No acute cardiopulmonary process. Electronically signed by: Ta Mcmahon MD (04/15/2021 12:10 PM) [id number]
[2021-04-15] MEDS ORDERED: cloNIDine HCL 0.1 MG TABLET PO ONE (12:15)
[2021-04-15] MEDS ORDERED: ASPIRIN CHEWABLE 81 MG TABLET. PO ONE (12:15)
[2021-04-15 12:40] LABS: BACTERIA,URINE 0 /HPF (0-FEW); BILIRUBIN,URINE NEG (NEG); CLARITY,URINE HAZY; COLOR,URINE STRAW; GLUCOSE,URINE NEG (NEG); NITRITE,URINE NEG (NEG); SQUAMOUS EPITHELIAL CELL,UR MANY /LPF; UROBILINOGEN,URINE 0.2 mg/dL (0.2 mg/dL)
[2021-04-15 12:46] LABS: CALCIUM 8.7 mg/dL (8.5-10.1); CREATININE 0.7 mg/dL (0.6-1.0); GFR 84.5
[2021-04-15 12:52] LABS: BASO # 0.1 x10^3/uL (0.0-0.2); BASO % 1 % (0-3); EOS # 0.1 x10^3/uL (0.0-0.7); EOS % 1 % (0-3); HEMATOCRIT 37.6 % (36.0-47.0); HEMOGLOBIN 12.3 g/dL (12.0-15.5); LYMPH # 2.3 x10^3/uL (1.0-4.8); LYMPH % 30 % (24-48); MEAN CORPUSCULAR HEMOGLOBIN 29 pg (25-35); MEAN CORPUSCULAR HGB CONC 33 g/dL (31-37); MEAN CORPUSCULAR VOLUME 87 fL (79-100); MONO # 0.6 x10^3/uL (0.0-1.1); MONO % 8 % (0-9); NEUT # 4.7 x10^3uL (1.8-7.7); NEUT % 61 % (31-73); PLATELET COUNT 247 x10^3/uL (140-400); RED BLOOD COUNT 4.33 x10^6/uL (3.50-5.40); RED CELL DISTRIBUTION WIDTH 14.1 % (11.5-14.5); WHITE BLOOD COUNT 7.7 x10^3/uL (4.0-11.0)
[2021-04-15 12:52] LABS: ALBUMIN 3.9 g/dL (3.4-5.0); ALBUMIN/GLOBULIN RATIO 1.1 (1.0-1.7); TOTAL BILIRUBIN 0.6 mg/dL (0.2-1.0); TOTAL PROTEIN 7.4 g/dL (6.4-8.2)
[2021-04-15 12:54] LABS: POTASSIUM 4.1 mmol/L (3.5-5.1)
[2021-04-15] MEDS ORDERED: LOSARTAN 25 MG TABLET. PO STA (15:06)
[2021-04-15] MEDS ORDERED: LOSA25TA11 PO (15:09)
[2021-04-15 15:22] VITALS: BP 165/85
== END 2021-04-15 15:22 | disposition home or self-care (01) ==
LOC: ER 11:26
DX: R07.89 Other chest pain (principal); I10 Essential (primary) hypertension; G43.909 Migraine, unspecified, not intractable, without status migrainosus; F41.9 Anxiety disorder, unspecified; Z88.1 Allergy status to other antibiotic agents; Z88.2 Allergy status to sulfonamides; Z88.8 Allergy status to other drugs, medicaments and biological substances; Z91.018 Allergy to other foods
CPT/HCPCS: 36415; 71045; 80053; 81001; 84484; 85025; 87086; 93005; 99284-25

== ENCOUNTER 2021-05-01 12:11 | Emergency (ER) | payer MEDICARE ==
[~2021-05-01] VITALS: Ht 160 cm; Wt 92.0 kg
[~2021-05-01 12:11] MED LIST changes: +LOSA25TA11 PO
[2021-05-01 12:37] VITALS: BP 172/106
[2021-05-01] MEDS ORDERED: diphenhydrAMINE HCL 25 MG CAPSULE PO ONE (12:45)
[2021-05-01] MEDS ORDERED: METOCLOPRAMIDE HCL 10 MG/2 ML VIAL. IVP ONE (12:45)
[2021-05-01] MEDS ORDERED: KETOROLAC 30 MG/ML VIAL. IVP ONE (12:45)
[2021-05-01] MEDS ORDERED: IV NORMAL SALINE 1,000ML 1,000 ML IV ONE (12:45)
--- NOTE | 2021-05-01 13:13 | RAD ---
CT head without contrast dated 05/01/2021 1:10 PM Comparison: None CLINICAL INDICATION: Blurry vision TECHNIQUE: Contiguous axial imaging of the head was performed from skull base to vertex. One or more of the following individualized dose reduction techniques were utilized for this examinat ion: 1. Automated exposure control 2. Adjustment of the mA and/or kV according to patient size 3. Use of iterative reconstruction technique. FINDINGS: Ventricles and sulci are mildly prominent for age. No midline shift or mass effect. Brain parenchyma is of normal attenuation. No hemorrhage or extra axial collection. Posterior fossa and brainstem unre markable. Visualized paranasal sinuses and mastoid air cells are clear. No apparent calvarial abnormality. IMPRESSION: No evidence of acute intracranial abnormality. Electronically signed by: Williams Caro MD (05/01/2021 1:11 PM) HOA
[2021-05-01 13:16] LABS: BASO # 0.1 x10^3/uL (0.0-0.2); BASO % 1 % (0-3); EOS # 0.1 x10^3/uL (0.0-0.7); EOS % 1 % (0-3); HEMATOCRIT 36.6 % (36.0-47.0); LYMPH # 2.4 x10^3/uL (1.0-4.8); LYMPH % 32 % (24-48); MEAN CORPUSCULAR HEMOGLOBIN 29 pg (25-35); MEAN CORPUSCULAR HGB CONC 33 g/dL (31-37); MEAN CORPUSCULAR VOLUME 87 fL (79-100); MONO # 0.6 x10^3/uL (0.0-1.1); MONO % 8 % (0-9); NEUT # 4.4 x10^3uL (1.8-7.7); NEUT % 58 % (31-73); PLATELET COUNT 266 x10^3/uL (140-400); RED BLOOD COUNT 4.21 x10^6/uL (3.50-5.40); RED CELL DISTRIBUTION WIDTH 13.7 % (11.5-14.5); WHITE BLOOD COUNT 7.6 x10^3/uL (4.0-11.0)
[2021-05-01 13:21] LABS: CALCIUM 8.4 mg/dL (8.5-10.1); CREATININE 0.9 mg/dL (0.6-1.0); GFR 63.2; POTASSIUM 3.1 mmol/L (3.5-5.1)
[2021-05-01 13:27] LABS: ALBUMIN 3.7 g/dL (3.4-5.0); ALBUMIN/GLOBULIN RATIO 1.1 (1.0-1.7); TOTAL BILIRUBIN 0.5 mg/dL (0.2-1.0)
--- NOTE | 2021-05-01 13:27 | PHYS DOC ---
Past History Past Medical History: Anxiety, Depression, Hypertension, Migraines (GUALBERTO TRIPATHI SUGAR [employer] PLANTER) Past Surgical History: Cholecystectomy, Hysterectomy Additional Past Surgical Histo: right shoulder surgery, RIGHT HAND SURGERY (GUALBERTO TRIPATHI SUG[employer]E PLANTER) Alcohol Use: None (GUALBERTO TRIPATHI SUGAR CANE PLANTER) Adult General Chief Complaint Chief Complaint: HEADACHE HPI HPI Patient is a 65-year-old female patient with history of depression, anxiety, hypertension, migraine headaches, presenting today complaining of a 6 out of 8 frontal migraine headache with photophobia and blurry vision, symptoms began 2 days ago. Patient reports vomiting 4 times since last night. Denies any fever. Denies any chest pain or shortness of breath. Denies this being the worst headache in her life but states she has never had blurry vision with her migraine headaches. She states she moved here from [place] and has not followed up with any neurologist. She states she cannot take sumatriptan for her headaches. She states she normally gets 2 migraine headaches per week. (GUALBERTO TRIPATHI SUG[employer]E PLANTER) Review of Systems Review of Systems Constitutional: Denies fever or chills [] Eyes: Denies change in visual acuity, redness, or eye pain [] HENT: Denies nasal congestion or sore throat [] Respiratory: Denies cough or shortness of breath [] Cardiovascular: No additional information not addressed in HPI [] GI: Reports nausea and vomiting. Denies abdominal pain, bloody stools or diarrhea [] : Denies dysuria or hematuria [] Musculoskeletal: Denies back pain or joint pain [] Integument: Denies rash or skin lesions [] Neurologic: Reports migraine headache and blurry vision, denies focal weakness or sensory changes [] Endocrine: Denies polyuria or polydipsia [] All other systems were reviewed and found to be within normal limits, except as documented in this note. (GUALBERTO TRIPATHI SU[employer] PLANTER) Current Medications Current Medications Current Medications Medications (Trade) Dose Ordered Sig/Marshall Start Time Stop Time Status Last Admin Dose Admin Diphenhydramine HCl (Benadryl) 25 mg 1X ONCE 05/01/21 12:45 05/01/21 12:49 DC 05/01/21 13:15 25 MG Ketorolac Tromethamine (Toradol 30mg Vial) 30 mg 1X ONCE 05/01/21 12:45 05/01/21 12:49 DC 05/01/21 13:14 30 MG Metoclopramide HCl (Reglan Vial) 10 mg 1X ONCE 05/01/21 12:45 05/01/21 12:49 DC 05/01/21 13:14 10 MG Sodium Chloride 1,000 ml @ 1,000 mls/hr 1X ONCE 05/01/21 12:45 05/01/21 13:44 05/01/21 13:15 1,000 MLS/HR (GUALBERTO TRIPATHI M [employer]TER) Allergies Allergies Allergies Coded Allergies Type Severity Reaction Last Updated Verified allopurinol Allergy Intermediate 04/06/21 Yes doxycycline Allergy Intermediate 04/06/21 Yes sulfamethoxazole Allergy Intermediate 04/06/21 Yes sumatriptan Allergy Intermediate ALLERGIC TO "TRIPTANS" 04/06/21 Yes trimethoprim Allergy Intermediate 04/06/21 Yes pecan nut Allergy Unknown 05/01/21 Yes (DONAGUALBERTO M SUGAR CANE PLANTER) Physical Exam Physical Exam Constitutional: Well developed, well nourished, no acute distress, non-toxic appearance. [] HENT: Normocephalic, atraumatic, bilateral external ears normal, oropharynx moist, no oral exudates, nose normal. [] Eyes: PERRLA, EOMI, conjunctiva normal, no discharge. [] Neck: Normal range of motion, no tenderness, supple, no stridor. [] Cardiovascular:Heart rate regular rhythm, no murmur [] Lungs & Thorax: Bilateral breath sounds clear to auscultation [] Abdomen: Bowel sounds normal, soft, no tenderness, no masses, no pulsatile masses. [] Skin: Warm, dry, no erythema, no rash. [] Back: No tenderness, no CVA tenderness. [] Extremities: No tenderness, no cyanosis, no clubbing, ROM intact, no edema. [] Neurologic: Alert and oriented X 3, normal motor function, normal sensory function, no focal deficits noted. Cranial nerves II through XII intact Psychologic: Affect normal, judgement normal, mood normal. [] (MUTUNGA,GUALBERTO M SUGAR CANE PLANTER) Current Patient Data Vital Signs Vital Signs Date Time Temp Pulse Resp B/P (MAP) Pulse Ox O2 Delivery O2 Flow Rate FiO2 05/01/21 12:37 97.8 79 16 172/106 (128) 97 Lab Results Laboratory Tests Test 05/01/21 12:55 White Blood Count 7.6 x10^3/uL (4.0-11.0) Red Blood Count 4.21 x10^6/uL (3.50-5.40) Hemoglobin 12.0 g/dL (12.0-15.5) Hematocrit 36.6 % (36.0-47.0) Mean Corpuscular Volume 87 fL (79-100) Mean Corpuscular Hemoglobin 29 pg (25-35) Mean Corpuscular Hemoglobin Concent 33 g/dL (31-37) Red Cell Distribution Width 13.7 % (11.5-14.5) Platelet Count 266 x10^3/uL (140-400) Neutrophils (%) (Auto) 58 % (31-73) Lymphocytes (%) (Auto) 32 % (24-48) Monocytes (%) (Auto) 8 % (0-9) Eosinophils (%) (Auto) 1 % (0-3) Basophils (%) (Auto) 1 % (0-3) Neutrophils # (Auto) 4.4 x10^3uL (1.8-7.7) Lymphocytes # (Auto) 2.4 x10^3/uL (1.0-4.8) Monocytes # (Auto) 0.6 x10^3/uL (0.0-1.1) Eosinophils # (Auto) 0.1 x10^3/uL (0.0-0.7) Basophils # (Auto) 0.1 x10^3/uL (0.0-0.2) Sodium Level 139 mmol/L (136-145) Potassium Level 3.1 mmol/L (3.5-5.1) L Chloride Level 102 mmol/L (98-107) Carbon Dioxide Level 26 mmol/L (21-32) Anion Gap 11 (6-14) Blood Urea Nitrogen 12 mg/dL (7-20) Creatinine 0.9 mg/dL (0.6-1.0) Estimated GFR (Cockcroft-Gault) 63.2 BUN/Creatinine Ratio 13 (6-20) Glucose Level 129 mg/dL (70-99) H Calcium Level 8.4 mg/dL (8.5-10.1) L Total Bilirubin Pending Aspartate Amino Transferase (AST) Pending Alanine Aminotransferase (ALT) Pending Alkaline Phosphatase Pending Total Protein Pending Albumin Pending Albumin/Globulin Ratio Pending (GUALBERTO TRIPATHI APRN) EKG EKG [] (GUALBERTO TRIPATHI APRN) Radiology/Procedures Radiology/Procedures []PROCEDURE: CT HEAD WO CONTRAST CT head without contrast dated 05/01/2021 1:10 PM Comparison: None CLINICAL INDICATION: Blurry vision TECHNIQUE: Contiguous axial imaging of the head was performed from skull base to vertex. One or more of the following individualized dose reduction techniques were utilized for this examination: 1. Automated exposure control 2. Adjustment of the mA and/or kV according to patient size 3. Use of iterative reconstruction technique. FINDINGS: Ventricles and sulci are mildly prominent for age. No midline shift or mass effect. Brain parenchyma is of normal attenuation. No hemorrhage or extra axial collection. Posterior fossa and brainstem unremarkable. Visualized paranasal sinuses and mastoid air cells are clear. No apparent calvarial abnormality. IMPRESSION: No evidence of acute intracranial abnormality. Electronically signed by: Williams Caro MD (05/01/2021 1:11 PM) [facility] [place] DICTATED AND SIGNED BY: WILLIAMS CARO MD DATE: 05/01/21 1310 CC: GUALBERTO TRIPATHI APRN; PCP,NO ~MTH0 0 (GUALBERTO TRIPATHI APRN) Heart Score C/O Chest Pain: N/A Risk Factors: Risk Factors: DM, Current or recent (<one month) smoker, HTN, HLP, family history of CAD, obesity. Risk Scores: Risk Factors: DM, Current or recent (<one month) smoker, HTN, HLP, family history of CAD, obesity. (GUALBERTO TRIPATHI APRN) Course & Med Decision Making Course & Med Decision Making Pertinent Labs and Imaging studies reviewed. (See chart for details) This is a 65-year-old female patient with history of chronic migraines presenting today complaining of a migraine headache for 3 days. He is also reporting nausea, vomiting, photophobia and blurry vision. She states the blurry vision is new. She is hypertensive at 172/106 with a heart rate in the 80s. History of hypertension. She was given migraine cocktail including IV fluids CT of the head is negative. CBC with no acute findings, CMP with potassium of 3.1, patient was given oral potassium replacement. 1340 I went to reevaluate patient, she states her headache is not completely gone. She states she would like something more for pain. I went through several nonnarcotic medicines, she states she does not want those. Informed her we do not treat migraine headaches with narcotics. Provided her neurologist. She states she has a PCP. Instructed to follow-up in the course of this week (GUALBERTO TRIPATHI MARYBETH) Course & Med Decision Making I was the Attending physician on the above date of service of this patient. This patient was evaluated, examined, treated, and dispositioned from the emergency department by the mid-level practitioner. Although I was working at the time , no assistance was requested. Electronically signed, Dayana Diaz DO (DAYANA DIAZ DO) Sarah Disclaimer Sarah Disclaimer This electronic medical record was generated, in whole or in part, using a voice recognition dictation system. (GUALBERTO TRIPATHI Janina RUEDA) Departure Departure: Impression: Primary Impression: Migraine headache Additional Impressions: Accelerated hypertension Hypokalemia Disposition: HOME / SELF CARE / HOMELESS Condition: STABLE Referrals: PCP,NO (PCP) OTONIEL FLORES MD follow up in the course of this week for chronic migraines Patient Instructions: Hypertension, Migraine Headache Additional Instructions: You were evaluated in the emergency room for migraine headaches. Please follow- up with your primary care doctor as well as a neurologist provided during the course of this week. Make sure you are taking the blood pressure medicines. Increase your dietary potassium intake through foods like bananas. Scripts Cyclobenzaprine Hcl (CYCLOBENZAPRINE HCL) 10 Mg Tablet 1 TAB PO TID, #30 TAB Prov: GUALBERTO TRIPATHI MARYBETH 05/01/21 Metoclopramide Hcl (REGLAN) 10 Mg Tablet 1 TAB PO TID, #21 TAB 0 Refills before food and bedtime Prov: GUALBERTO TRIPATHI MARYBETH 05/01/21 Methylprednisolone (MEDROL) 4 Mg Tab.ds.pk 1 PKG PO UD, #1 PKG Prov: GUALBERTO TRIPATHI SU[employer] PLANTER 05/01/21 Problem Qualifiers Primary Impression: Migraine headache Migraine type: without aura Status migrainosus presence: without status migrainosus Intractability: not intractable Qualified Codes: G43.009 - Migraine without aura, not intractable, without status migrainosus GUALBERTO TRIPATHI APRN May 01, 2021 13:27 DAYANA DIAZ DO May 02, 2021 06:01
[2021-05-01] MEDS ORDERED: POTASSIUM CHLORIDE 20 MEQ TABLET.ER. PO ONE (13:30)
[2021-05-01] MEDS ORDERED: METO10TA81 PO (13:51)
[2021-05-01] MEDS ORDERED: METH4TAB2 PO (13:51)
[2021-05-01] MEDS ORDERED: CYCL10TA19 PO (13:51)
== END 2021-05-01 14:18 | disposition home or self-care (01) ==
LOC: ER 12:11
DX: G43.909 Migraine, unspecified, not intractable, without status migrainosus (principal); I10 Essential (primary) hypertension; E87.6 Hypokalemia; Z88.1 Allergy status to other antibiotic agents; Z88.2 Allergy status to sulfonamides; Z91.010 Allergy to peanuts; Z88.8 Allergy status to other drugs, medicaments and biological substances
CPT/HCPCS: 36415; 70450; 80053; 85025; 96361; 96374; 96375; 99284; J1885; J2765; J7030; Q0163; 99285-25

== ENCOUNTER 2021-05-11 12:23 | Emergency (ER) | payer MEDICARE ==
[~2021-05-11] VITALS: Ht 160 cm; Wt 95.5 kg
[~2021-05-11 12:23] MED LIST changes: +CYCL10TA19 PO; +METH4TAB2 PO; +METO10TA81 PO
[2021-05-11] MEDS ORDERED: IV NORMAL SALINE 1,000ML 1,000 ML IV ONE (13:15)
--- NOTE | 2021-05-11 13:23 | PHYS DOC ---
Past History Past Medical History: Anxiety, Depression, Hypertension, Migraines Past Surgical History: Cholecystectomy, Hysterectomy Additional Past Surgical Histo: right shoulder surgery, RIGHT HAND SURGERY Alcohol Use: None General Adult HPI: HPI: Patient is a 65-year-old female who presents to the emergency department for a seizure versus syncopal episode that occurred at home today. Patient reports that she woke up on the floor and thought maybe she had a seizure. The episode was unwitnessed. Patient believes she had a seizure because she has a history of seizures and she takes 100 mg of Lamictal twice daily. She states that she has been taking it as directed. She reports that she has seizures when she feels stressed and she is recently moved and has some increased stress. She reports hitting the right side of her head and is reporting pain at that site. She is also reporting right shoulder pain. She reports that her last seizure prior to today was 6 months ago. Patient also has a history of migraine, anxiety and depression. Patient denies any nausea, vomiting, dizziness. Review of Systems: Review of Systems: Constitutional: negative unless reported in HPI Eyes: negative unless reported in HPI HENT: negative unless reported in HPI Respiratory: negative unless reported in HPI Cardiovascular: negative unless reported in HPI GI: negative unless reported in HPI : negative unless reported in HPI Musculoskeletal: negative unless reported in HPI Integument: negative unless reported in HPI Neurologic: negative unless reported in HPI Endocrine: negative unless reported in HPI Lymphatic: negative unless reported in HPI Psychiatric: negative unless reported in HPI Current Medications: Current Meds: Current Medications Medications (Trade) Dose Ordered Sig/Marshall Start Time Stop Time Status Last Admin Dose Admin Sodium Chloride 1,000 ml @ 1,000 mls/hr 1X ONCE 05/11/21 13:15 05/11/21 14:14 Allergies: Allergies: Allergies Coded Allergies Type Severity Reaction Last Updated Verified allopurinol Allergy Intermediate 04/06/21 Yes doxycycline Allergy Intermediate 04/06/21 Yes sulfamethoxazole Allergy Intermediate 04/06/21 Yes sumatriptan Allergy Intermediate ALLERGIC TO "TRIPTANS" 04/06/21 Yes trimethoprim Allergy Intermediate 04/06/21 Yes pecan nut Allergy Unknown 05/01/21 Yes Physical Exam: PE: Constitutional: Well developed, well nourished, no acute distress, non-toxic appearance. [] HENT: Normocephalic, atraumaticno palpable skull fracture or hematoma, bilateral external ears normal, oropharynx moist, no oral exudates, nose normal. [] Eyes: PERRL, 4 mm pupils bilaterally, EOMI, conjunctiva normal, no discharge. [] Neck: Normal range of motion, no tenderness, supple, no stridor. [] Cardiovascular:Heart rate regular rhythm, no murmur [] Lungs & Thorax: Bilateral breath sounds clear to auscultation [] Abdomen: Bowel sounds normal, soft, no tenderness, no masses, no pulsatile masses. [] Skin: Warm, dry, no erythema, no rash. [] Back: Normal range of motion Extremities: No tenderness, no cyanosis, no clubbing, ROM intact, no edema. 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 [] Psychologic: Affect normal, judgement normal, mood normal. [] Current Patient Data: Labs: Laboratory Tests Test 05/11/21 13:44 White Blood Count 8.4 x10^3/uL Red Blood Count 4.44 x10^6/uL Hemoglobin 12.6 g/dL Hematocrit 38.4 % Mean Corpuscular Volume 87 fL Mean Corpuscular Hemoglobin 28 pg Mean Corpuscular Hemoglobin Concent 33 g/dL Red Cell Distribution Width 13.9 % Platelet Count 260 x10^3/uL Neutrophils (%) (Auto) 60 % Lymphocytes (%) (Auto) 29 % Monocytes (%) (Auto) 9 % Eosinophils (%) (Auto) 2 % Basophils (%) (Auto) 1 % Neutrophils # (Auto) 5.0 x10^3uL Lymphocytes # (Auto) 2.4 x10^3/uL Monocytes # (Auto) 0.7 x10^3/uL Eosinophils # (Auto) 0.1 x10^3/uL Basophils # (Auto) 0.1 x10^3/uL Sodium Level 140 mmol/L Potassium Level 3.9 mmol/L Chloride Level 102 mmol/L Carbon Dioxide Level 28 mmol/L Anion Gap 10 Blood Urea Nitrogen 9 mg/dL Creatinine 0.8 mg/dL Estimated GFR (Cockcroft-Gault) 72.4 BUN/Creatinine Ratio 11 Glucose Level 99 mg/dL Calcium Level 8.6 mg/dL Total Bilirubin 0.5 mg/dL Aspartate Amino Transf (AST/SGOT) 20 U/L Alanine Aminotransferase (ALT/SGPT) 20 U/L Alkaline Phosphatase 111 U/L Troponin I High Sensitivity 6 ng/L Total Protein 7.3 g/dL Albumin 3.8 g/dL Albumin/Globulin Ratio 1.1 Current Medications Medications (Trade) Dose Ordered Sig/Marshall Route PRN Reason Start Time Stop Time Status Last Admin Dose Admin Sodium Chloride 1,000 ml @ 1,000 mls/hr 1X ONCE IV 05/11/21 13:15 05/11/21 14:14 DC 05/11/21 14:34 EKG: EKG: EKG performed by ER staff at 1325 shows sinus rhythm with a rate of 71, QTc of 468, no STEMI read by Dr. Andrews [] Radiology/Procedures: Radiology/Procedures: []PROCEDURE: PORTABLE CHEST 1V EXAMINATION: Chest radiograph. VIEWS: 1 COMPARISON: 04/15/2021 INDICATION:65 years, Female, seizure. FINDINGS: Stable cardiomegaly. Tortuous thoracic aorta. Bibasilar subsegmental atelectasis versus scarring, essentially unchanged since prior exam. No focal consolidation. No pleural effusion or pneumothorax. No acute osseous process. Right shoulder arthroplasty. IMPRESSION: No acute cardiopulmonary process. Electronically signed by: Shannan Monique MD (05/11/2021 2:36 PM) [id number] DICTATED AND SIGNED BY: SHANNAN MONIQUE MD DATE: 05/11/21 1435 CC: LAURENCE ROSE APRN; PCP,NO ~MTH0 0 PROCEDURE: SHOULDER 2+V RIGHT Exam Date: 05/11/2021 1:27 PM XR SHOULDER_RIGHT 2+ VIEWS Indication: Reason: fall c/o r. shoulder injury / Spl. Instructions: / History: . FINDINGS/ IMPRESSION: Right shoulder arthroplasty is noted. Humeral head is high riding with subacromial space narrowing consistent with rotator cuff arthropathy. No acute fracture or dislocation is seen. Degenerative changes are noted. Electronically signed by: Ruma Hammer MD (05/11/2021 2:02 PM) [facility] DICTATED AND SIGNED BY: RUMA HAMMER MD DATE: 05/11/21 1400 CC: LAURENCE ROSE APRN; PCP,NO ~MTH0 0 Exam Date: 05/11/2021 1:[address] HEAD AND C-SPINE WO Indication: Reason: seizure vs syncope, head injury / Spl. Instructions: / History: . One or more of the following dose reduction techniques were utilized: *Automated exposure control (AEC) *Adjustment of mA and/or kV according to patient size *Use of iterative reconstruction technique *CT scan done according to ALARA, or ALARA/IMAGE GENTLY EXAMINATION: CT OF THE HEAD WITHOUT CONTRAST INDICATION: Trauma, head injury, headache; TECHNIQUE: Noncontrast helical axial CT images of the head were obtained. COMPARISON: May 01, 2021 FINDINGS: The ventricles and sulci are normal for the patient's stated age. There is no evidence of acute intracranial hemorrhage, extra-axial collection, mass effect, midline shift, or acute territorial infarct. No lesion of the skull base or the calvarium is seen. The visualized paranasal sinuses, mastoid air cells, and orbits are normal in appearance. IMPRESSION: No evidence for acute intracranial abnormality. EXAMINATION: CT OF THE CERVICAL SPINE WITHOUT CONTRAST Clinical Indication: Cervical spine pain after trauma Technique: Thin cut helical axial CT images through the cervical spine were obtained without contrast on a multi-detector CT scanner. Source data was then reconstructed into sagittal and coronal planes. Findings: Alignment is maintained without spondylolisthesis. Vertebral body heights are maintained without acute fracture. Mild to moderate multilevel degenerative and noted. No significant prevertebral soft tissue swelling is demonstrated. No severe osseous central canal stenosis is seen. Impression: No evidence of acute cervical spine fracture or subluxation. Electronically signed by: Ruma Hammer MD (05/11/2021 1:55 PM) [facility] DICTATED AND SIGNED BY: RUMA HAMMER MD DATE: 05/11/21 1343 CC: LAURENCE ROSE APRN; PCP,NO ~MTH0 0 Heart Score: C/O Chest Pain: No Risk Factors: Risk Factors: DM, Current or recent (<one month) smoker, HTN, HLP, family history of CAD, obesity. Risk Scores: Score 0 - 3: 2.5% MACE over next 6 weeks - Discharge Home Score 4 - 6: 20.3% MACE over next 6 weeks - Admit for Clinical Observation Score 7 - 10: 72.7% MACE over next 6 weeks - Early Invasive Strategies Course & Med Decision Making: Course & Med Decision Making Pertinent Labs and Imaging studies reviewed. (See chart for details) [] Patient presents to the emergency department for possible seizure versus syncopal episode that occurred at home today. Event was unwitnessed and patient does have a history of seizures and takes Lamictal 100 mg twice a day and has been taking them as directed. She believes her break through seizure is due to increased stress due to a recent move. Work-up in the ER consisted of blood work, urinalysis, EKG. Patient is reporting right-sided head pain following her fall and right shoulder pain and therefore imaging was performed that showed no acute findings. CXR also showed no acute findings. Blood work was unremarkable. UA with a urinary tract infection and she will be treated with an antibiotic. Patient advised to continue taking Lamictal. Advised to follow-up with her [facility] provider and neurology. I discussed with patient all findings and diagnostic testing as well as the need to follow-up with PCP for further evaluation and treatment or return to the ER if any new or worsening symptoms. Strict return precautions were also discussed at length. Patient voiced understanding and agreement with the plan. Patient is hemodynamically stable at the time of disposition. Dragon Disclaimer: Sarah Disclaimer: This electronic medical record was generated, in whole or in part, using a voice recognition dictation system. Departure Departure: Impression: Primary Impression: Seizure Additional Impression: Urinary tract infection Qualified Codes: N30.00 - Acute cystitis without hematuria Disposition: HOME / SELF CARE / HOMELESS Condition: GOOD Referrals: PCP,NO (PCP) Patient Instructions: Seizure, Adult, Urinary Tract Infection Additional Instructions: You were seen in the emergency department for a seizure. Your blood work was unremarkable. Your urine showed a urinary tract infection which will be treated with an antibiotic. Please start and finish the antibiotic completely. Increase your fluids and avoid bladder irritants like caffeine, sugary beverages and alcohol. Please continue taking your Lamictal as directed. Please perform stress relieving activities as you stated that increased stress causes your seizures. I would advise you to follow-up with your primary care provider tomorrow regarding your ER visit. Return to the emergency department if you have another seizure or develop weakness, confusion, inability to walk, chest pain, shortness of breath, intractable nausea or vomiting, high fevers refractory to treatment or any new or worsening concerns. Scripts Cephalexin (KEFLEX) 500 Mg Capsule 1 CAP PO BID for INFECTION for 7 Days, #14 CAP 0 Refills Prov: LAURENCE ROSE APRN 05/11/21 LAURENCE ROSE APRN May 11, 2021 13:23
--- NOTE | 2021-05-11 13:42 | EKG ---
[address] [address] Test Date: 2021-05-11 Test Time: 13:25:26 Pat Name: NESHA JOHNSON Department: Room: Gender: F Technical Systems Architect: YASMIN : [id number] Requested By: LAURENCE ROSE Order Number: [id number] Reading MD: Measurements Intervals [place] Rate: 71 P: -33 VT: 150 QRS: -21 QRSD: 88 T: 8 QT: 426 QTc: 468 Interpretive Statements SINUS RHYTHM LEFTWARD AXIS OTHERWISE NORMAL ECG RI6.02 No previous ECG available for comparison
--- NOTE | 2021-05-11 13:57 | RAD ---
Exam Date: 05/11/2021 1:[address] HEAD AND C-SPINE WO Indication: Reason: seizure vs syncope, head injury / Spl. Instructions: / History: . One or more of the following dose reduction techniques were utilized: *Automated exposure control (AEC) *Adjustment of mA and/or kV according to patient size *Use of iterative reconstruction technique *CT scan done according to ALARA, or ALARA/IMAGE GENTLY EXAMINATION: CT OF THE HEAD WITHOUT CONTRAST INDICATION: Trauma, head injury, headache; TECHNIQUE: Noncontrast helical axial CT images of the head were obtained. COMPARISON: May 01, 2021 FINDINGS: The ventricles and sulci are normal for the patient's stated age. There is no evidence of acute int racranial hemorrhage, extra-axial collection, mass effect, midline shift, or acute territorial infarc t. No lesion of the skull base or the calvarium is seen. The visualized paranasal sinuses, mastoid ai r cells, and orbits are normal in appearance. IMPRESSION: No evidence for acute intracranial abnormality. EXAMINATION: CT OF THE CERVICAL SPINE WITHOUT CONTRAST Clinical Indication: Cervical spine pain after trauma Technique: Thin cut helical axial CT images through the cervical spine were obtained without contrast on a multi-detector CT scanner. Source data was then reconstructed into sagittal and coronal planes. Findings: Alignment is maintained without spondylolisthesis. Vertebral body heights are maintained without acute fracture. Mild to moderate multilevel degenerativ e and noted. No significant prevertebral soft tissue swelling is demonstrated. No severe osseous cent ral canal stenosis is seen. Impression: No evidence of acute cervical spine fracture or subluxation. Electronically signed by: Lonnie Hammer MD (05/11/2021 1:55 PM) [facility]
[2021-05-11 13:59] LABS: BASO # 0.1 x10^3/uL (0.0-0.2); BASO % 1 % (0-3); EOS # 0.1 x10^3/uL (0.0-0.7); EOS % 2 % (0-3); HEMATOCRIT 38.4 % (36.0-47.0); HEMOGLOBIN 12.6 g/dL (12.0-15.5); LYMPH # 2.4 x10^3/uL (1.0-4.8); LYMPH % 29 % (24-48); MEAN CORPUSCULAR HEMOGLOBIN 28 pg (25-35); MEAN CORPUSCULAR HGB CONC 33 g/dL (31-37); MEAN CORPUSCULAR VOLUME 87 fL (79-100); MONO # 0.7 x10^3/uL (0.0-1.1); MONO % 9 % (0-9); NEUT % 60 % (31-73); PLATELET COUNT 260 x10^3/uL (140-400); RED BLOOD COUNT 4.44 x10^6/uL (3.50-5.40); RED CELL DISTRIBUTION WIDTH 13.9 % (11.5-14.5); WHITE BLOOD COUNT 8.4 x10^3/uL (4.0-11.0)
--- NOTE | 2021-05-11 14:04 | RAD ---
Exam Date: 05/11/2021 1:27 PM XR SHOULDER_RIGHT 2+ VIEWS Indication: Reason: fall c/o r. shoulder injury / Spl. Instructions: / History: . FINDINGS/ IMPRESSION: Right shoulder arthroplasty is noted. Humeral head is high riding with subacromial space narrowing c onsistent with rotator cuff arthropathy. No acute fracture or dislocation is seen. Degenerative anny nges are noted. Electronically signed by: Lonnie Hammer MD (05/11/2021 2:02 PM) BRIGHT
[2021-05-11 14:08] LABS: CALCIUM 8.6 mg/dL (8.5-10.1); CREATININE 0.8 mg/dL (0.6-1.0); GFR 72.4; POTASSIUM 3.9 mmol/L (3.5-5.1)
[2021-05-11 14:13] LABS: ALBUMIN 3.8 g/dL (3.4-5.0); ALBUMIN/GLOBULIN RATIO 1.1 (1.0-1.7); TOTAL BILIRUBIN 0.5 mg/dL (0.2-1.0); TOTAL PROTEIN 7.3 g/dL (6.4-8.2)
--- NOTE | 2021-05-11 14:39 | RAD ---
EXAMINATION: Chest radiograph. VIEWS: 1 COMPARISON: 04/15/2021 INDICATION:65 years, Female, seizure. FINDINGS: Stable cardiomegaly. Tortuous thoracic aorta. Bibasilar subsegmental atelectasis versus scarring, ess entially unchanged since prior exam. No focal consolidation. No pleural effusion or pneumothorax. No acute osseous process. Right shoulder arthroplasty. IMPRESSION: No acute cardiopulmonary process. Electronically signed by: Martha Monique MD (05/11/2021 2:36 PM) [id number]
[2021-05-11 15:43] LABS: BILIRUBIN,URINE NEG (NEG); CLARITY,URINE CLEAR; COLOR,URINE YELLOW; GLUCOSE,URINE NEG (NEG); NITRITE,URINE NEG (NEG); UROBILINOGEN,URINE 0.2 mg/dL (0.2 mg/dL)
[2021-05-11 15:44] LABS: BACTERIA,URINE FEW /HPF (0-FEW); RBC,URINE 0 /HPF (0-2); SQUAMOUS EPITHELIAL CELL,UR OCC /LPF
[2021-05-11] MEDS ORDERED: CEPH500C PO (16:06)
[2021-05-11 16:08] VITALS: BP 167/84
[2021-05-11] MEDS ORDERED: diazePAM 5 MG TABLET. PO ONE (16:15)
== END 2021-05-11 16:49 | disposition home or self-care (01) ==
LOC: ER 12:23
DX: R56.9 Unspecified convulsions (principal); N30.00 Acute cystitis without hematuria; M25.511 Pain in right shoulder; G43.909 Migraine, unspecified, not intractable, without status migrainosus; I10 Essential (primary) hypertension; Z88.8 Allergy status to other drugs, medicaments and biological substances; Z91.018 Allergy to other foods; Z88.1 Allergy status to other antibiotic agents; Z88.2 Allergy status to sulfonamides; W18.09XA Striking against other object with subsequent fall, initial encounter; Y93.89 Activity, other specified; Y92.89 Other specified places as the place of occurrence of the external cause; Y99.8 Other external cause status
CPT/HCPCS: 36415; 70450; 71045; 72125; 73030; 80053; 81001; 83605; 83735; 84484; 85025; 87086; 93005; 96360; 99284; J7030

== ENCOUNTER 2021-05-26 18:29 | Emergency (ER) | payer MEDICARE ==
[~2021-05-26] VITALS: Ht 160 cm; Wt 98.0 kg
[~2021-05-26 18:29] MED LIST changes: +CEPH500C PO
[2021-05-26 18:51] VITALS: BP 142/89
--- NOTE | 2021-05-26 19:25 | PHYS DOC ---
Past History Past Medical History: Anxiety, Depression, Hypertension, Migraines, Seizure (DANIEL QUINONEZ) Past Surgical History: Cholecystectomy, Hysterectomy, Other Additional Past Surgical Histo: Shoulder (DANIEL QUINONEZ) Alcohol Use: None (DANIEL QUINONEZ) General Adult EDM: Chief Complaint: SEIZURE HPI: HPI: Patient is a 65 year old female with known history of seizures who presents status post unwitnessed seizure at home today. Patient states when she fell to the ground, she hit her head on a cabinet and bit the inside of her cheek. Her most recent seizure was approximately 2 months ago. Patient reports she just recently moved to the area. She states that her daughter is usually close by, but since has moved she has not seen her daughter much. Currently, patient's only complaint is muscle soreness. Patient does not have a neurologist locally, but has an appointment to establish primary care with Dr. Loo on 06/04/2021. (DANIEL QUINONEZ) Review of Systems: Review of Systems: Constitutional: Denies fever, chills or generalized weakness Eyes: Denies change in visual acuity, visual field deficits or discharge HENT: Denies ear pain, nasal congestion or sore throat Respiratory: Denies cough or shortness of breath Cardiovascular: Denies chest pain, palpitations or edema GI: Denies abdominal pain, nausea, vomiting, bloody stools or diarrhea Musculoskeletal: See HPI Integument: Denies rash or other skin lesion Neurologic: Denies headache, focal weakness or sensory changes (DANIEL QUINONEZ) Allergies: Allergies: Allergies Coded Allergies Type Severity Reaction Last Updated Verified allopurinol Allergy Intermediate 04/06/21 Yes doxycycline Allergy Intermediate 04/06/21 Yes sulfamethoxazole Allergy Intermediate 04/06/21 Yes sumatriptan Allergy Intermediate ALLERGIC TO "TRIPTANS" 04/06/21 Yes trimethoprim Allergy Intermediate 04/06/21 Yes pecan nut Allergy Unknown 05/01/21 Yes (DANIEL QUINONEZ) Physical Exam: PE: Constitutional: Well developed, well nourished, disheveled, no acute distress, non-toxic appearance. HENT: Normocephalic, atraumatic, bilateral external ears normal, oropharynx moist, no oral exudates, small abrasion to the oral mucosa of the left cheek, nose normal. Eyes: PERRLA, EOMI, conjunctiva normal, no discharge. Neck: Normal range of motion, no tenderness, supple, no stridor. Skin: Warm, dry, no erythema, no rash. Back: No step-off, no tenderness. Extremities: No tenderness, no cyanosis, no clubbing, ROM intact, no edema. Neurologic: Alert and oriented x4, steady and symmetrical upright gait, no focal deficits noted. (DANIEL QUINONEZ) Current Patient Data: Vital Signs: Vital Signs Date Time Temp Pulse Resp B/P (MAP) Pulse Ox O2 Delivery O2 Flow Rate FiO2 05/26/21 18:51 98.4 86 18 142/89 (106) 96 (DANIEL QUINONEZ) Heart Score: C/O Chest Pain: No (DANIEL QUINONEZ) Course & Med Decision Making: Course & Med Decision Making Pertinent Labs and Imaging studies reviewed. (See chart for details) Patient with known seizure history presents with seizure today. Patient is currently alert & oriented without any focal deficits or evidence of acute trauma. Lamictal level ordered. Patient advised to keep her appointment to establish care with Dr. Loo and was provided contact information for Dr. Flores to establish neuro care. Strict return precautions provided. Patient understands and is agreeable to discharge. (DANIEL QUINONEZ) Dragon Disclaimer: Dragon Disclaimer: This electronic medical record was generated, in whole or in part, using a voice recognition dictation system. (DANIEL QUINONEZ) Departure Departure: Impression: Primary Impression: Seizure Disposition: 01 HOME / SELF CARE / HOMELESS Condition: STABLE Referrals: PCP,ANCA (PCP) OTONIEL FLORES MD, RACHEL Patient Instructions: Seizure, Adult, [id number] Additional Instructions: EMERGENCY DEPARTMENT GENERAL DISCHARGE INSTRUCTIONS Thank you for coming to [facility] (ED) today and trusting us with you care. We trust that you had a positive experience in our Emergency Department. If you wish to speak to the department management, you may call the director at [phone]. YOUR FOLLOW UP INSTRUCTIONS ARE FOLLOWS: 1. Follow up with your primary care doctor. If you do not have a primary doctor, please ask for a resource list of physicians or clinics that may be able to assist you with follow up care. 2. The emergency provider has interpreted your imaging studies, if any were ordered. The radiology client engagement specialist also reviewed them. If there is a change in the findings, you will be notified in 48 hours when at all possible. 3. If a lab test or culture has been done, your results will be reviewed and you will be notified if you need a change in treatment. 4. Follow instructions verbalized to you and refer to the printouts if needed. ADDITIONAL INSTRUCTIONS AND INFORMATION: 1. Your care today has been supervised by a physician who is specially trained in emergency care. Many problems require more than one evaluation for a complete diagnosis and treatment. We recommend that you schedule your follow up appointment as recommended to ensure complete treatment of you illness or injury. If you are unable to obtain follow up care and continue to have a problem, or if your condition worsens, we recommend that you return to the ED. 2. We are not able to safely determine your condition over the phone nor are we able to give sound medical advice over the phone. For these safety reasons, if you call for medical advice we will ask you to come to the ED for further evaluation. 3. If you have any questions regarding these discharge instructions please call the ED at [phone]. SAFETY INFORMATION: In the interest of safety, wellness, and injury prevention; we encourage you to wear your seat belt, if you smoke; quite smoking, and we encourage family to use a protective helmet for bicycling and other sporting events that present an increased risk for head injury. IF YOUR SYMPTOMS WORSEN OR NEW SYMPTOMS DEVELOP, OR YOU HAVE CONCERNS ABOUT YOUR CONDITION; OR IF YOUR CONDITION WORSENS WHILE YOU ARE WAITING FOR YOUR FOLLOW UP APPOINTMENT; EITHER CONTACT YOUR PRIMARY CARE DOCTOR, THE PHYSICIAN WHOSE NAME AND NUMBER YOU WERE GIVEN, OR RETURN TO THE ED IMMEDIATELY. Attending Signature Attending Signature I have reviewed the PA/SCREEN CUTTER AND TRIMMER's note and plan of care. I was available for consultation as needed during the patient's visit in the emergency department. I agree with the clinical impression, plan, and disposition. (CIARRA SHAW DO) DANIEL QUINONEZ May 26, 2021 19:25 CIARRA SHWA DO May 26, 2021 21:52
== END 2021-05-26 20:39 | disposition home or self-care (01) ==
LOC: ER 18:29
DX: R56.9 Unspecified convulsions (principal); I10 Essential (primary) hypertension; G43.909 Migraine, unspecified, not intractable, without status migrainosus; Z88.1 Allergy status to other antibiotic agents; Z88.2 Allergy status to sulfonamides; Z91.010 Allergy to peanuts
CPT/HCPCS: 36415; 80175; 99283

== ENCOUNTER → 2021-06-02 | Outpatient (CLI) | payer MEDICARE ==
[2021-05-26 18:51] VITALS: BP 142/89
--- NOTE | 2021-06-02 14:15 | RAD ---
EXAM: Right hand, 3 views. HISTORY: Fracture follow-up. COMPARISON: 03/23/2021 FINDINGS: 3 views of the left hand are obtained. There is a healed or nearly healed distal fifth meta carpal fracture. The previously suspected fractures involving the bases of the third and second metac arpals are no longer seen. There is a suspected small cortical cyst involving the distal aspect of th e second metacarpal. There is degenerative spurring involving the first carpometacarpal joint and fir st interphalangeal joint. There is a suspected small chronic fragmented spur or soft tissue calcifica tion adjacent to the distal aspect of the fourth middle phalanx. IMPRESSION: 1. Healed or nearly healed distal fifth metacarpal fracture. 2. No acute osseous finding. Electronically signed by: Tarah Gong MD (06/02/2021 2:13 PM) [id number]
== END ==
LOC: RAD 13:28
PROVIDERS: ATTEND Physician Assistant
DX: S62.366D Nondisplaced fracture of neck of fifth metacarpal bone, right hand, subsequent encounter for fracture with routine healing (principal); M77.8 Other enthesopathies, not elsewhere classified; X58.XXXD Exposure to other specified factors, subsequent encounter
CPT/HCPCS: 73130

== ENCOUNTER 2021-06-25 16:46 | Emergency (ER) | payer MEDICARE ==
[~2021-06-25] VITALS: Ht 160 cm; Wt 98.5 kg
--- NOTE | 2021-06-25 17:10 | PHYS DOC ---
Past History Past Medical History: Anxiety, Depression, Hypertension, Migraines, Seizure (DAYANA DIAZ DO) Past Surgical History: Cholecystectomy, Hysterectomy, Other Additional Past Surgical Histo: Shoulder (DAYANA DIAZ DO) Alcohol Use: None (DAYANA DIAZ DO) Adult General Chief Complaint Chief Complaint: HEADACHE HPI HPI Patient is a 65-year-old female presenting for migraine. This is an acute on chronic issue. Reports she has been at baseline health but admits she recently contracted Covid despite being vaccinated 1.5 weeks ago. Reports symptoms were typically upper respiratory in nature and that these have since improved drastically. Nonetheless, she admits having intermittent migraines during infected time that typically self resolve with Naprosyn. Reports having a migraine that started this morning and was unresponsive to Naprosyn prompting her to come in for evaluation. Reports migraine is mostly right-sided, pu lsatile in nature, causes photophobia, and is made her nauseous with x3 episodes of emesis since onset. Denies any other motor or sensory or neuro changes, no neck pain or stiffness (DAYANA DIAZ DO) Review of Systems Review of Systems Fourteen body systems of review of systems have been reviewed. See HPI for pertinent positives and negative responses, other king all other systems are negative, non-pertinent or non-contributory (DAYANA DIAZ DO) Allergies Allergies Allergies Coded Allergies Type Severity Reaction Last Updated Verified allopurinol Allergy Intermediate 06/25/21 Yes doxycycline Allergy Intermediate 06/25/21 Yes sulfamethoxazole Allergy Intermediate 06/25/21 Yes sumatriptan Allergy Intermediate ALLERGIC TO "TRIPTANS" 04/06/21 Yes trimethoprim Allergy Intermediate 06/25/21 Yes pecan nut Allergy Unknown 06/25/21 Yes (DAYANA DIAZ DO) Physical Exam Physical Exam Constitutional: Well developed, well nourished, appears uncomfortable due to pain but nontoxic in overall appearance HENT: Normocephalic, atraumatic, bilateral external ears normal, oropharynx moist, no oral exudates, nose normal. Eyes: PERRLA, EOMI, conjunctiva normal, no discharge. Neck: Normal range of motion, no tenderness, supple, no stridor. No nuchal rigidity and/or meningeal signs Cardiovascular: Heart rate regular, sinus rhythm, no murmurs rubs or gallops Lungs & Thorax: Bilateral breath sounds clear to auscultation Abdomen: Bowel sounds normal, soft, no tenderness, no masses, no pulsatile masses. Nonsurgical abdomen, no peritoneal signs Skin: Warm, dry, no erythema, no rash. Back: No tenderness, no CVA tenderness. Extremities: No tenderness, no cyanosis, no clubbing, ROM intact, no edema. Neurologic: Alert and oriented X 3, grossly normal motor & sensory function, no focal deficits noted. Psychologic: Affect normal, judgement normal, mood normal. (DAYANA DIAZ DO) Current Patient Data Vital Signs Vital Signs Date Time Temp Pulse Resp B/P (MAP) Pulse Ox O2 Delivery O2 Flow Rate FiO2 06/25/21 17:03 98.6 76 18 164/109 (127) 96 Room Air Vital Signs Date Time Temp Pulse Resp B/P (MAP) Pulse Ox O2 Delivery O2 Flow Rate FiO2 06/25/21 21:18 60 18 161/90 (113) 94 06/25/21 18:25 Room Air 06/25/21 17:03 98.6 Lab Results Laboratory Tests Test 06/25/21 17:15 Sodium Level 140 mmol/L Potassium Level 3.4 mmol/L Chloride Level 104 mmol/L Carbon Dioxide Level 25 mmol/L Anion Gap 11 Blood Urea Nitrogen 6 mg/dL Creatinine 0.9 mg/dL Estimated GFR (Cockcroft-Gault) 63.2 Glucose Level 93 mg/dL Calcium Level 8.8 mg/dL Current Medications Medications (Trade) Dose Ordered Sig/Marshall Route PRN Reason Start Time Stop Time Status Last Admin Dose Admin Sodium Chloride 1,000 ml @ 1,000 mls/hr 1X ONCE IV 06/25/21 17:15 06/25/21 18:14 DC 06/25/21 17:26 Prochlorperazine Edisylate (Compazine) 10 mg 1X ONCE IV 06/25/21 17:15 06/25/21 17:17 DC 06/25/21 17:31 Diphenhydramine HCl (Benadryl) 50 mg 1X ONCE IVP 06/25/21 17:15 06/25/21 17:17 DC 06/25/21 17:28 Ketorolac Tromethamine (Toradol 15mg Vial) 15 mg 1X ONCE IVP 06/25/21 18:00 06/25/21 18:01 DC 06/25/21 18:27 Acetaminophen (Tylenol) 1,000 mg 1X ONCE PO 06/25/21 18:00 06/25/21 18:01 DC 06/25/21 18:26 Ondansetron HCl (Zofran) 8 mg 1X ONCE IVP 06/25/21 20:15 06/25/21 20:24 DC 06/25/21 20:58 Dexamethasone (Decadron) 10 mg 1X ONCE PO 06/25/21 20:15 06/25/21 20:24 DC 06/25/21 20:57 Midazolam HCl (Versed) 2.5 mg 1X ONCE IV 06/25/21 20:15 06/25/21 20:24 DC 06/25/21 20:57 (DAYANA DIAZ DO) EKG EKG [] (DAYANA DIAZ DO) Radiology/Procedures Radiology/Procedures [] (DAYANA DIAZ DO) Heart Score C/O Chest Pain: No Risk Factors: Risk Factors: DM, Current or recent (<one month) smoker, HTN, HLP, family history of CAD, obesity. Risk Scores: Risk Factors: DM, Current or recent (<one month) smoker, HTN, HLP, family history of CAD, obesity. (DAYANA DIAZ DO) Course & Med Decision Making Course & Med Decision Making ABCs unremarkable HPI physical exam and ER work-up obtained so far unremarkable for any emergent or surgical issues Patient with history of migraines presenting with symptoms classic of her typical migraines. Patient provided IV fluid, Benadryl, Compazine, Toradol and Tylenol At this time in care, comprehensive signout given to oncoming physician. Please defer to Dr. Steward's documentation regarding future care of patient in ER setting (DAYANA DIAZ DO) Course & Med Decision Making Patient care handed off to me at checkout pending resolution of headache. Patient awake alert and oriented no acute distress. Headache significantly better. Laboratory analysis not concerning. CT of the head not concerning. Discussed symptom control at home. Advised to follow-up in the morning with primary care physician update on ED visit. Gave strict return precautions to the ED. (MARY STEWARD MD) Dragon Disclaimer Dragon Disclaimer This electronic medical record was generated, in whole or in part, using a voice recognition dictation system. (DAYANA DIAZ DO) Departure Departure: Impression: Primary Impression: Migraine headache Disposition: HOME / SELF CARE / HOMELESS Condition: IMPROVED Referrals: EVEYLN JORGENSEN (PCP) Patient Instructions: General Headache Without Cause Additional Instructions: You were seen for a migraine headache. Your symptoms improved with an anti- nausea medication, NSAID, tylenol, and gentle fluid hydration. You should return to the ED if you develop worsening pain, vision change, numbness, tingling, weakness, vomiting, fever, neck pain, or any other new or concerning symptoms. You can continue Tylenol, ibuprofen and Benadryl at home. Please be sure to stay well-hydrated. You need to follow up with your primary care physician for further evaluation and treatment in the morning to update on your ED visit and set up a follow-up as needed. Please come back to the ED immediately with new or concerning symptoms as we discussed.. DAYANA DIAZ DO Jun 25, 2021 17:10 MARY STEWARD MD Jun 25, 2021 21:00
[2021-06-25] MEDS ORDERED: diphenhydrAMINE 50 MG/ML VIAL IVP ONE (17:15)
[2021-06-25] MEDS ORDERED: PROCHLORPERAZINE 10 MG/2 ML VIAL. IV ONE (17:15)
[2021-06-25] MEDS ORDERED: IV NORMAL SALINE 1,000ML 1,000 ML IV ONE (17:15)
[2021-06-25 17:50] LABS: CALCIUM 8.8 mg/dL (8.5-10.1); CREATININE 0.9 mg/dL (0.6-1.0); GFR 63.2; POTASSIUM 3.4 mmol/L (3.5-5.1)
[2021-06-25] MEDS ORDERED: ACETAMINOPHEN 500 MG TABLET PO ONE (18:00)
[2021-06-25] MEDS ORDERED: KETOROLAC 15 MG/ML VIAL. IVP ONE (18:00)
[2021-06-25] MEDS ORDERED: ONDANSETRON PF 4 MG/2 ML VIAL. IVP ONE (20:15)
[2021-06-25] MEDS ORDERED: MIDAZOLAM HCL PF 5 MG/5 ML VIAL. IV ONE (20:15)
[2021-06-25] MEDS ORDERED: DEXAMETHASONE 4 MG TABLET PO ONE (20:15)
--- NOTE | 2021-06-25 20:38 | RAD ---
PQRS Compliance Statement: One or more of the following individualized dose reduction techniques were utilized for this examinat ion: 1. Automated exposure control 2. Adjustment of the mA and/or kV according to patient size 3. Use of iterative reconstruction technique CT HEAD WITHOUT CONTRAST History: Reason: fall. headache / Spl. Instructions: / History: Comparison: CT head without contrast May 11, 2021. Procedure: Axial images are obtained of the head from the skull base through the vertex without IV co ntrast. Findings: The ventricles and sulci are normal for the patient's age. No mass-effect, midline shift, hemorrhage, extra-axial fluid collection, or obvious acute infarction is identified. Basilar cisterns are patent. Bone windows demonstrate no acute calvarial abnormality. The visualized paranasal sinuses are clear. Mastoid air cells are well aerated. IMPRESSION: No acute intracranial abnormality. Electronically signed by: Rob Monterroso MD (06/25/2021 8:36 PM) [id number]
[2021-06-25 21:18] VITALS: BP 161/90
== END 2021-06-25 21:20 | disposition home or self-care (01) ==
LOC: ER 16:46
DX: G43.909 Migraine, unspecified, not intractable, without status migrainosus (principal); F41.9 Anxiety disorder, unspecified; F32.9 Major depressive disorder, single episode, unspecified; I10 Essential (primary) hypertension; Z88.8 Allergy status to other drugs, medicaments and biological substances; Z88.1 Allergy status to other antibiotic agents; Z88.2 Allergy status to sulfonamides; Z91.018 Allergy to other foods
CPT/HCPCS: 36415; 70450; 80048; 96361; 96374; 96375; 99284; J0780; J1200; J1885; J2250; J2405; J7030; J8540

== ENCOUNTER 2021-07-01 16:17 | Emergency (ER) | payer MEDICARE ==
[~2021-07-01] VITALS: Ht 160 cm; Wt 98.5 kg
--- NOTE | 2021-07-01 17:01 | PHYS DOC ---
Past History Past Medical History: Anxiety, Depression, Hypertension, Migraines, Seizure Past Surgical History: Cholecystectomy, Hysterectomy, Other Additional Past Surgical Histo: Shoulder Alcohol Use: None General Adult EDM: Chief Complaint: MECHANICAL FALL HPI: HPI: Patient is a 62-year-old female coming in for head and back pain after a fall. Patient states she slipped on a rug and fell backwards striking the back of her head. Positive LOC, but was alone unsure how long she was knocked out for. Did not take any blood thinners. Had some nausea but no vomiting. Denies any vi angela changes. Patient states she was feeling well in her normal state of health prior to fall Review of Systems: Review of Systems: All other systems within normal limits except for as noted in the HPI Allergies: Allergies: Allergies Coded Allergies Type Severity Reaction Last Updated Verified allopurinol Allergy Intermediate 06/25/21 Yes doxycycline Allergy Intermediate 06/25/21 Yes sulfamethoxazole Allergy Intermediate 06/25/21 Yes sumatriptan Allergy Intermediate ALLERGIC TO "TRIPTANS" 04/06/21 Yes trimethoprim Allergy Intermediate 06/25/21 Yes pecan nut Allergy Unknown 06/25/21 Yes Physical Exam: PE: Constitutional: Well developed, well nourished, no acute distress, non-toxic appearance. [] HENT: Normocephalic, tenderness to occiput bilateral external ears normal, nose normal. [] Eyes: PERRLA, conjunctiva normal, no discharge. No point tenderness, no step-o ff or deformity [] Neck: No rigidity, supple, no stridor. [] Cardiovascular: Regular rate and rhythm, brisk cap refill [] Lungs & Thorax: Non labored symmetric respirations, no tachypnea or respiratory distress [] Abdomen: Soft, nondistended. Skin: Warm, dry, no erythema, no rash. [] Back: Unremarkable, no step-off deformity, tenderness along thoracic spine Extremities: No deformities, range of motion grossly intact, no lower extremity edema [] Neurologic: Alert and oriented X 3, no focal deficits noted. [] Psychologic: Affect normal, judgement normal, mood normal. [] Current Patient Data: Vital Signs: Vital Signs Date Time Temp Pulse Resp B/P (MAP) Pulse Ox O2 Delivery O2 Flow Rate FiO2 07/01/21 16:25 98.3 73 16 164/108 (126) Room Air EKG: EKG: [] Radiology/Procedures: Radiology/Procedures: [address] [address] IMAGING REPORT Signed PATIENT: NESHA JOHNSON ACCOUNT: [id number] : 1955 LOCATION: ER AGE: 65 SEX: F EXAM STATUS: REG ER ORD. PHYSICIAN: MELANIA HERNANDES MD REASON: fall PROCEDURE: CT HEAD AND CERVICAL SPINE WO EXAM: CT HEAD WITHOUT IV CONTRAST CLINICAL HISTORY: Reason: fall / Spl. Instructions: / History: COMPARISON: None. TECHNIQUE: Routine CT of the head without contrast. Soft tissues and bone windows were reviewed. PQRS compliance statement - One or more of the following individualized dose reduction techniques were utilized for this study: 1. Automated exposure control 2. Adjustment of the mA and/or kV according to patient size 3. Use of iterative reconstruction technique FINDINGS: There is no evidence of hemorrhage, mass or extra-axial fluid collection. Rodriges-white differentiation is maintained with no evidence of edema. There is no mass effect or shift of the intracranial structures. The ventricles, basilar cisterns and cortical sulci are normal in size and configuration for the patients stated age. The cerebellum and brainstem are unremarkable. The calvarium demonstrates no evidence of fracture or focal lesion. There is normal aeration of the visualized paranasal sinuses and mastoid air cells. The visualized portions of the orbits are normal. IMPRESSION: No evidence for acute intracranial process. EXAM: CT CERVICAL SPINE WITHOUT IV CONTRAST CLINICAL HISTORY: Reason: fall / Spl. Instructions: / History: COMPARISON: None available. TECHNIQUE: Helical CT of the cervical spine was performed. Axial, coronal and sagittal reformatted images were also performed. PQRS compliance statement - One or more of the following individualized dose r eduction techniques were utilized for this study: 1. Automated exposure control 2. Adjustment of the mA and/or kV according to patient size 3. Use of iterative reconstruction technique FINDINGS: Vertebral body heights are preserved. Atlantodental degenerative changes are seen. Trace anterolisthesis of C3 on C4 likely degenerative. Straightening of the normal cervical lordosis. Mild disc height loss C4-5, C5-6 and C6-7 with small posterior disc osteophyte complexes. IMPRESSION: 1. Multilevel spondylosis as above 2. Negative acute fracture or subluxation. Electronically signed by: Jono Hopper MD (07/01/2021 5:02 PM) [facility] DICTATED AND SIGNED BY: JONO HOPPER MD DATE: 07/01/21 0853 CC: MELANIA HERNANDES MD; EVELYN JORGENSEN ~MTH0 0 [] [place] [id number] IMAGING REPORT Signed PATIENT: NESHA JOHNSON ACCOUNT: [id number] : 1955 LOCATION: ER AGE: 65 SEX: F EXAM STATUS: REG ER ORD. PHYSICIAN: MELANIA HERNANDES MD REASON: fall PROCEDURE: CT LUMBAR SPINE WO CONTRAST CT THORACIC SPINE WO, CT LUMBAR SPINE WO History:Reason: fall / Spl. Instructions: / History: . Pain Technique: Noncontrast CT was performed of the thoracic and lumbar spine. Multiplanar reconstructions were performed. Exposure: One or more of the following individualized dose reduction techniques were utilized for this examination: 1. Automated exposure control 2. Adjustment of the mA and/or kV according to patient size 3. Use of iterative reconstruction technique. Comparison: None Findings: Thoracic spine: Normal vertebral body height and alignment. No fracture. Mild degenerative disc changes. No significant canal or neuroforaminal narrowing. Moderate cervical spondylosis partially imaged. Partially imaged cystic structure anterior to the right pericardium. Mild pulmonary emphysema. Lumbar spine: Normal vertebral body height and alignment. No fracture. T12-L1: No canal or neuroforaminal narrowing. L1-L2: Minimal disc bulge. No canal or neuroforaminal narrowing. L2-L3: Minimal disc bulge. No canal or neuroforaminal narrowing. L3-L4: Small disc bulge. No canal or neuroforaminal narrowing. Mild facet arthropathy. L4-L5: Small disc bulge. Moderate facet arthropathy. Mild subarticular recess narrowing. No canal narrowing. Mild bilateral neuroforaminal narrowing. L5-S1: Small disc bulge. Moderate facet arthropathy. No canal narrowing. Mild bilateral neuroforaminal narrowing. Impression: Thoracic spine CT: 1. No acute fracture or subluxation of the thoracic spine. Lumbar spine CT: 1. No acute fracture or subluxation of the lumbar spine. 2. Lumbar spondylosis most prominent L4-5 and L5-S1. 3. Moderate lower lumbar facet arthropathy. Electronically signed by: Herbert Preciado DO (07/01/2021 5:16 PM) [facility] DICTATED AND SIGNED BY: HERBERT PRECIADO DO DATE: 07/01/211706 CC: MELANIA HERNANDES MD; EVELYN JORGENSEN ~MTH0 0 Heart Score: C/O Chest Pain: No Risk Factors: Risk Factors: DM, Current or recent (<one month) smoker, HTN, HLP, family history of CAD, obesity. Risk Scores: Score 0 - 3: 2.5% MACE over next 6 weeks - Discharge Home Score 4 - 6: 20.3% MACE over next 6 weeks - Admit for Clinical Observation Score 7 - 10: 72.7% MACE over next 6 weeks - Early Invasive Strategies Course & Med Decision Making: Course & Med Decision Making Imaging all within normal, no signs of intracranial hemorrhage. Patient remains awake and alert in emergency department. Dragon Disclaimer: [employer] Disclaimer: This electronic medical record was generated, in whole or in part, using a voice recognition dictation system. Departure Departure: Impression: Primary Impression: Fall, accidental Disposition: HOME / SELF CARE / HOMELESS Condition: STABLE Referrals: EVELYN JORGENSEN (PCP) Patient Instructions: Fall Prevention and Home Safety Scripts Acetaminophen With Codeine (ACETAMINOPHEN-COD #3 TABLET) 1 Each Tablet 1 TAB PO PRN Q6HRS PRN for PAIN for 3 Days, #8 TAB Prov: MELANIA HERNANDES MD 07/01/21 MELANIA HERNANDES MD Jul 01, 2021 17:01
--- NOTE | 2021-07-01 17:04 | RAD ---
EXAM: CT HEAD WITHOUT IV CONTRAST CLINICAL HISTORY: Reason: fall / Spl. Instructions: / History: COMPARISON: None. TECHNIQUE: Routine CT of the head without contrast. Soft tissues and bone windows were reviewed. PQRS compliance statement - One or more of the following individualized dose reduction techniques wer e utilized for this study: 1. Automated exposure control 2. Adjustment of the mA and/or kV according to patient size 3. Use of iterative reconstruction technique FINDINGS: There is no evidence of hemorrhage, mass or extra-axial fluid collection. Rodriges-white differentiation is maintained with no evidence of edema. There is no mass effect or shift of the intracranial structures. The ventricles, basilar cisterns and cortical sulci are normal in size and configuration for the vladimir ents stated age. The cerebellum and brainstem are unremarkable. The calvarium demonstrates no evidence of fracture or focal lesion. There is normal aeration of the visualized paranasal sinuses and mastoid air cells. The visualized portions of the orbits are normal. IMPRESSION: No evidence for acute intracranial process. EXAM: CT CERVICAL SPINE WITHOUT IV CONTRAST CLINICAL HISTORY: Reason: fall / Spl. Instructions: / History: COMPARISON: None available. TECHNIQUE: Helical CT of the cervical spine was performed. Axial, coronal and sagittal reformatted im ages were also performed. PQRS compliance statement - One or more of the following individualized dose reduction techniques wer e utilized for this study: 1. Automated exposure control 2. Adjustment of the mA and/or kV according to patient size 3. Use of iterative reconstruction technique FINDINGS: Vertebral body heights are preserved. Atlantodental degenerative changes are seen. Trace anterolisthesis of C3 on C4 likely degenerative. Straightening of the normal cervical lordosis. Mild disc height loss C4-5, C5-6 and C6-7 with small posterior disc osteophyte complexes. IMPRESSION: 1. Multilevel spondylosis as above 2. Negative acute fracture or subluxation. Electronically signed by: Jono Brock MD (07/01/2021 5:02 PM) [facility]
[2021-07-01] MEDS ORDERED: ONDANSETRON PF 4 MG/2 ML VIAL. IVP ONE (17:15)
[2021-07-01] MEDS ORDERED: IV NORMAL SALINE 1,000ML 1,000 ML IV ONE (17:15)
--- NOTE | 2021-07-01 17:19 | RAD ---
CT THORACIC SPINE WO, CT LUMBAR SPINE WO History:Reason: fall / Spl. Instructions: / History: . Pain Technique: Noncontrast CT was performed of the thoracic and lumbar spine. Multiplanar reconstructions were performed. Exposure: One or more of the following individualized dose reduction techniques were utilized for thi s examination: 1. Automated exposure control 2. Adjustment of the mA and/or kV according to patient size 3. Use of iterative reconstruction technique. Comparison: None Findings: Thoracic spine: Normal vertebral body height and alignment. No fracture. Mild degenerative disc changes. No significant canal or neuroforaminal narrowing. Moderate cervical s pondylosis partially imaged. Partially imaged cystic structure anterior to the right pericardium. Mild pulmonary emphysema. Lumbar spine: Normal vertebral body height and alignment. No fracture. T12-L1: No canal or neuroforaminal narrowing. L1-L2: Minimal disc bulge. No canal or neuroforaminal narrowing. L2-L3: Minimal disc bulge. No canal or neuroforaminal narrowing. L3-L4: Small disc bulge. No canal or neuroforaminal narrowing. Mild facet arthropathy. L4-L5: Small disc bulge. Moderate facet arthropathy. Mild subarticular recess narrowing. No canal na rrowing. Mild bilateral neuroforaminal narrowing. L5-S1: Small disc bulge. Moderate facet arthropathy. No canal narrowing. Mild bilateral neuroforamin al narrowing. Impression: Thoracic spine CT: 1. No acute fracture or subluxation of the thoracic spine. Lumbar spine CT: 1. No acute fracture or subluxation of the lumbar spine. 2. Lumbar spondylosis most prominent L4-5 and L5-S1. 3. Moderate lower lumbar facet arthropathy. Electronically signed by: Herbert Preciado DO (07/01/2021 5:16 PM) [facility]
[2021-07-01] MEDS ORDERED: ACETAMINOPHEN/CODEINE 300/30MG TABLET PO ONE (17:30)
[2021-07-01] MEDS ORDERED: ACET1TAB33 PO (17:31)
[2021-07-01 17:50] VITALS: BP 146/88
== END 2021-07-01 17:51 | disposition home or self-care (01) ==
LOC: ER 16:17
DX: M54.6 Pain in thoracic spine (principal); G43.909 Migraine, unspecified, not intractable, without status migrainosus; F41.9 Anxiety disorder, unspecified; F32.9 Major depressive disorder, single episode, unspecified; I10 Essential (primary) hypertension; Z88.1 Allergy status to other antibiotic agents; Z88.2 Allergy status to sulfonamides; Z91.018 Allergy to other foods; W18.09XA Striking against other object with subsequent fall, initial encounter; Y93.89 Activity, other specified; Y92.89 Other specified places as the place of occurrence of the external cause; Y99.8 Other external cause status
CPT/HCPCS: 70450; 72125; 72128; 72131; 99285

== ENCOUNTER 2021-07-07 11:43 | Emergency (ER) | payer MEDICARE ==
[~2021-07-07] VITALS: Ht 157.5 cm; Wt 101.0 kg
--- NOTE | 2021-07-07 12:09 | PHYS DOC ---
Past History Past Medical History: Anxiety, Depression, Hypertension, Migraines, Seizure Past Surgical History: Cholecystectomy, Hysterectomy, Other Additional Past Surgical Histo: Shoulder Alcohol Use: None General Adult EDM: Chief Complaint: HEADACHE HPI: HPI: Patient is a 65-year-old female who presents to the emergency department with a migraine headache that started last night. Patient is reporting a right-sided headache. With complaints of photophobia, phonophobia, sensitivity to smells, nausea and seeing black spots. Patient reports that she typically gets a migraine headache every 2 weeks and needs to be treated in the emergency department with migraine cocktail and IV fluids. She reports that she does have a neurologist to follow-up with but they have not scheduled her. Patient reports that this feels like her typical migraine headaches. She reports that this is not the worst headache she is ever had in her life. She denies thunderclap headache. She is also denying fever, neck stiffness, vomiting. Patient took naproxen today at 6 AM, she is allergic to triptan's. Review of Systems: Review of Systems: Constitutional: See HPI Eyes: See HPI HENT: See HPI GI: See HPI Neurologic: See HPI Allergies: Allergies: Allergies Coded Allergies Type Severity Reaction Last Updated Verified allopurinol Allergy Intermediate 06/25/21 Yes doxycycline Allergy Intermediate 06/25/21 Yes sulfamethoxazole Allergy Intermediate 06/25/21 Yes sumatriptan Allergy Intermediate ALLERGIC TO "TRIPTANS" 04/06/21 Yes trimethoprim Allergy Intermediate 06/25/21 Yes pecan nut Allergy Unknown 06/25/21 Yes Physical Exam: PE: Constitutional: Well developed, well nourished, no acute distress, non-toxic appearance. [] HENT: Normocephalic, atraumatic, bilateral external ears normal, oropharynx moist, no oral exudates, nose normal. [] Eyes: PERRL, EOMI, 5 mm bilaterally, conjunctiva normal, no discharge. [] Neck: Normal range of motion, no tenderness, no neutral rigidity, supple, no stridor. [] Cardiovascular:Heart rate regular rhythm, no murmur [] Lungs & Thorax: Bilateral breath sounds clear to auscultation [] Abdomen: Bowel sounds normal, soft, no tenderness, no masses, obese, no pulsatile masses. [] Skin: Warm, dry, no erythema, no rash. [] Back: Motion Extremities: No tenderness, no cyanosis, no clubbing, ROM intact, no edema. [] Neurologic: Alert and oriented X 3, normal motor function, normal sensory function, no focal deficits noted. [] Psychologic: Affect normal, judgement normal, mood normal. [] Current Patient Data: Vital Signs: Vital Signs Date Time Temp Pulse Resp B/P (MAP) Pulse Ox O2 Delivery O2 Flow Rate FiO2 07/07/21 11:53 97.9 80 18 167/108 (127) 96 Room Air EKG: EKG: [] Radiology/Procedures: Radiology/Procedures: [] Heart Score: C/O Chest Pain: N/A Risk Factors: Risk Factors: DM, Current or recent (<one month) smoker, HTN, HLP, family history of CAD, obesity. Risk Scores: Score 0 - 3: 2.5% MACE over next 6 weeks - Discharge Home Score 4 - 6: 20.3% MACE over next 6 weeks - Admit for Clinical Observation Score 7 - 10: 72.7% MACE over next 6 weeks - Early Invasive Strategies Course & Med Decision Making: Course & Med Decision Making Pertinent Labs and Imaging studies reviewed. (See chart for details) [] Patient presents to the emergency department with a migraine headache. Patient is reporting nausea, photophobia, phonophobia, sensitivity to sound and seeing black spots. She reports this feels like her typical migraines. She denies any thunderclap headache, she reports that this is not the worst headache she is ever had in her life. Patient states that she normally has to come every 2 weeks to the emergency department for IV fluids and a migraine cocktail. Patient has follow-up information for neurologist. Patient states she took naproxen this morning for her pain. Patient's blood pressure in the emergency department was elevated at 167/108. Patient reports that she took her antihyp ertensive medications this morning. Patient will be treated with IV fluids and migraine cocktail. Patient reports that she continues to have a headache and nausea following treatment, she was given nausea medication and dexamethasone. Upon reevaluation, she reports her pain is 8/10. She reports that in the past she has received morphine or fentanyl for her migraine headaches in this ER and that usually resolves her headache. I offered patient a single dose of pain medication in the ER. She reported improvement in her symptoms following treatment in the ER, she is advised to follow up with PCP and neurologist regarding headache treatment. Advised to take tylenol/ibuprofen at home for her headaches. Patients VSS, bp 167/84. I discussed with patient all findings and diagnostic testing as well as the need to follow-up with PCP for further evaluation and treatment or return to the ER if any new or worsening symptoms. Strict return precautions were also discussed at length. Patient voiced understanding and agreement with the plan. Patient is hemodynamically stable at the time of disposition. Dragon Disclaimer: Dragon Disclaimer: This electronic medical record was generated, in whole or in part, using a voice recognition dictation system. Departure Departure: Impression: Primary Impression: Migraine headache Qualified Codes: G43.909 - Migraine, unspecified, not intractable, without status migrainosus Disposition: HOME / SELF CARE / HOMELESS Condition: GOOD Referrals: EVELYN JORGENSEN (PCP) Patient Instructions: Migraine Headache Additional Instructions: You are seen in the emergency department today for a migraine headache which was treated in the emergency department. At home take Tylenol and ibuprofen for your headache. Lay down and rest in a dark quiet area. Follow-up with your primary care provider tomorrow regarding your ER visit. I would try contacting the neurologist to try to move your appointment to a closer date. Return to the emergency department if you develop worsening of your headache, vision changes, poor coordination, confusion, seizure-like activity, inability to ambulate, intractable nausea or vomiting, high fevers refractory to treatment, speech changes or any other neuro changes. LAURENCE ROSE APRN Jul 07, 2021 12:09
[2021-07-07] MEDS ORDERED: IV NORMAL SALINE 1,000ML 1,000 ML IV ONE (12:15)
[2021-07-07] MEDS ORDERED: KETOROLAC 30 MG/ML VIAL. IVP ONE (12:15)
[2021-07-07] MEDS ORDERED: PROCHLORPERAZINE 10 MG/2 ML VIAL. IV ONE (12:15)
[2021-07-07] MEDS ORDERED: diphenhydrAMINE 50 MG/ML VIAL IVP ONE (12:15)
[2021-07-07] MEDS ORDERED: DEXAMETHASONE SOD PHOS 10 MG/ML VIAL. IVP ONE (13:00)
[2021-07-07] MEDS ORDERED: ONDANSETRON PF 4 MG/2 ML VIAL. IVP ONE (13:00)
[2021-07-07] MEDS ORDERED: MORPHINE SULFATE 4 MG/ML DISP.SYRIN. ONE (13:44)
[2021-07-07] MEDS ORDERED: MORPHINE SULFATE 4 MG/ML DISP.SYRIN. IV ONE (13:45)
[2021-07-07 14:06] VITALS: BP 167/85
== END 2021-07-07 14:15 | disposition home or self-care (01) ==
LOC: ER 11:43
DX: G43.909 Migraine, unspecified, not intractable, without status migrainosus (principal); I10 Essential (primary) hypertension; F41.9 Anxiety disorder, unspecified; F32.9 Major depressive disorder, single episode, unspecified; Z88.8 Allergy status to other drugs, medicaments and biological substances; Z88.1 Allergy status to other antibiotic agents; Z91.018 Allergy to other foods; Z88.2 Allergy status to sulfonamides
CPT/HCPCS: 96361; 96374; 96375; 99283; J0780; J1100; J1200; J1885; J2270; J2405; J7030; 99284

== ENCOUNTER → 2021-07-14 | Outpatient (CLI) | payer MEDICARE ==
[2021-07-07 14:06] VITALS: BP 167/85
--- NOTE | 2021-07-14 16:16 | RAD ---
3 views right hand HISTORY: Pain AP lateral and oblique views COMPARISON: June 02, 2021 Deformity of the distal fifth middle carpal was seen previously and is consistent with an old boxer's injury. There is mild degenerative indications of the first carpometacarpal joint with marginal spur ring. Remaining visualized osseous structures appear grossly intact. IMPRESSION: No acute findings. Electronically signed by: Edmund Adams III, MD (07/14/2021 4:13 PM) [facility]
== END ==
LOC: LAB 12:57
PROVIDERS: ATTEND Physician Assistant
DX: S62.306D Unspecified fracture of fifth metacarpal bone, right hand, subsequent encounter for fracture with routine healing (principal); M77.8 Other enthesopathies, not elsewhere classified; M21.831 Other specified acquired deformities of right forearm; X58.XXXD Exposure to other specified factors, subsequent encounter
CPT/HCPCS: 73130

== ENCOUNTER 2021-07-20 13:35 | Emergency (ER) | payer MEDICARE ==
[~2021-07-20] VITALS: Ht 157.5 cm; Wt 101.0 kg
[2021-07-20 13:35] VITALS: BP 187/105
[2021-07-20] MEDS ORDERED: ONDANSETRON ODT 4 MG TAB.RAPDIS PO ONE (14:15)
[2021-07-20] MEDS ORDERED: MORPHINE SULFATE 4 MG/ML DISP.SYRIN. IM ONE (14:15)
--- NOTE | 2021-07-20 14:16 | PHYS DOC ---
Past History Past Medical History: Anxiety, Depression, Hypertension, Migraines, Seizure Past Surgical History: Cholecystectomy, Hysterectomy, Other Additional Past Surgical Histo: Shoulder Alcohol Use: None General Adult EDM: Chief Complaint: HEADACHE HPI: HPI: Patient is a 65-year-old female who presents with migraine. Patient states that she has a history of migraines and gets them 2-3 times a month. Patient states that she has an appointment with a neurologist. Patient does not been prescribed any medication to help with migraines and has been taking ibuprofen and Tylenol at home. Patient reports that ibuprofen is not working at home. States that she has been vomiting since last night. Denies thunderclap, denies worst headache of her life. History of anxiety, seizures, migraines, hypertension. Review of Systems: Review of Systems: ROS At least 10 ROS systems have been reviewed and are negative except as documented in the HPI. General: Negative except as outlined in HPI above. Skin: Negative except as outlined in HPI above. HEENT: Negative except as outlined in HPI above. Neck: Negative except as outlined in HPI above. Respiratory: Negative except as outlined in HPI above.. Cardiovascular: Negative except as outlined in HPI above. Abdomen: Negative except as outlined in HPI above. : Negative except as outlined in HPI above. Back/MSK: Negative except as outlined in HPI above. Neuro: Negative except as outlined in HPI above. Psych: Negative except as outlined in HPI above. Current Medications: Current Meds: Current Medications Medications (Trade) Dose Ordered Sig/Marshall Start Time Stop Time Status Last Admin Dose Admin Morphine Sulfate (Morphine 4mg Syringe) 4 mg 1X ONCE 07/20/21 14:15 07/20/21 14:16 Ondansetron HCl (Zofran Odt) 4 mg 1X ONCE 07/20/21 14:15 07/20/21 14:16 Allergies: Allergies: Allergies Coded Allergies Type Severity Reaction Last Updated Verified allopurinol Allergy Intermediate 06/25/21 Yes doxycycline Allergy Intermediate 06/25/21 Yes sulfamethoxazole Allergy Intermediate 06/25/21 Yes sumatriptan Allergy Intermediate ALLERGIC TO "TRIPTANS" 04/06/21 Yes trimethoprim Allergy Intermediate 06/25/21 Yes pecan nut Allergy Unknown 06/25/21 Yes Physical Exam: PE: Constitutional: Well developed, well nourished, no acute distress, non-toxic appearance. [] HENT: Normocephalic, bilateral external ears normal, oropharynx moist, no oral exudates, nose normal. [] Eyes: PERRLA, conjunctiva normal, no discharge. [] Neck: Normal range of motion, no tenderness, supple Cardiovascular:Heart rate regular rhythm, no murmur [] Lungs & Thorax: Bilateral breath sounds clear to auscultation [] Abdomen: Bowel sounds normal, soft, no tenderness Skin: Warm, dry, no erythema, no rash. [] Back: No tenderness, no CVA tenderness. [] Extremities: No tenderness, no cyanosis, no clubbing, ROM intact, no edema. [] Neurologic: Alert and oriented X 3, normal motor function, normal sensory fu nction, no focal deficits noted. [] Psychologic: Affect normal, judgement normal, mood normal. [] Current Patient Data: Vital Signs: Vital Signs Date Time Temp Pulse Resp B/P (MAP) Pulse Ox O2 Delivery O2 Flow Rate FiO2 07/20/21 13:35 78 187/105 (132) 96 07/20/21 13:35 16 Room Air EKG: EKG: [] Radiology/Procedures: Radiology/Procedures: [] Heart Score: C/O Chest Pain: No Risk Factors: Risk Factors: DM, Current or recent (<one month) smoker, HTN, HLP, family history of CAD, obesity. Risk Scores: Score 0 - 3: 2.5% MACE over next 6 weeks - Discharge Home Score 4 - 6: 20.3% MACE over next 6 weeks - Admit for Clinical Observation Score 7 - 10: 72.7% MACE over next 6 weeks - Early Invasive Strategies Course & Med Decision Making: Course & Med Decision Making Pertinent Labs and Imaging studies reviewed. (See chart for details) [] 65-year-old female presents with migraine headache. Patient states that she gets migraines 2-3 times a month. Denies thunderclap. Denies worst headache of her life. Patient states that she has been vomiting since last night. Patient states "the migraine cocktail does not work for me and the end of having to give me a shot of morphine for the headache to go away". Patient given IM morphine, ODT Zofran. Advised patient she needs to call her PCP tomorrow make a follow-up appointment to discuss management for future occurrences. Patient is appreciative and okay with discharge plan. Sarah Disclaimer: Sarah Disclaimer: This electronic medical record was generated, in whole or in part, using a voice recognition dictation system. Departure Departure: Impression: Primary Impression: Migraine headache Qualified Codes: G43.009 - Migraine without aura, not intractable, without status migrainosus Referrals: EVELYN JORGENSEN (PCP) Patient Instructions: Migraine Headache Additional Instructions: EMERGENCY DEPARTMENT GENERAL DISCHARGE INSTRUCTIONS Ibuprofen and Tylenol at home for discomfort. Follow-up with your PCP tomorrow to discuss further management of your migraines. Return to emergency room if you have worsening symptoms or concerns. Thank you for coming to [facility] (ED) today and trusting us with you care. We trust that you had a positivie experience in our Emergency Department. If you wish to speak to the department management, you may call the director at [phone]. YOUR FOLLOW UP INSTRUCTIONS ARE FOLLOWS: 1. Do you have a private Doctor? If you do not have a private doctor, please ask for a resource list of physicians or clinics that may be able to assist you with follow up care. 2. The Emergency Physician has interpreted your x-rays. The X-Ray specialist will also review them. If there is a change in the findings, you will be notified in 48 hours when at all possible. 3. A lab test or culture has been done, your results will be reviewed and you will be notified if you need a change in treatment. ADDITIONAL INSTRUCTIONS AND INFORMATION: 1. Your care today has been supervised by a physician who is specially trained in emergency care. Many problems require more than one evaluation for a complete diagnosis and treatment. We recommend that you schedule your follow up appointment as recommended to ensure complete treatment of you illness or injury. If you are unable to obtain follow up care and continue to have a problem, or if your condition worsens, we recommend that you return to the ED. 2. We are not able to safely determine your condition over the phone nor are we able to give sound medical advice over the phone. For these safety reasons, if you call for medical advice we will ask you to come to the ED for further evaluation. 3. If you have any questions regarding these discharge instructions please call the ED at [phone]. SAFETY INFORMATION: In the interest of safety, wellness, and injury prevention; we encourage you to wear your sealbelt, if you smoke; quite smoking, and we encourage family to use a protective helmet for bicycling and other sporting events that present an increased risk for head injury. IF YOUR SYMPTOMS WORSEN OR NEW SYMPTOMS DEVELOP, OR YOU HAVE CONCERNS ABOUT YOUR CONDITION; OR IF YOUR CONDITION WORSENS WHILE YOU ARE WAITING FOR YOUR FOLLOW UP APPOINTMENT; EITHER CONTACT YOUR PRIMARY CARE DOCTOR, THE PHYSICIAN WHOSE NAME AND NUMBER YOU WERE GIVEN, OR RETURN TO THE ED IMMEDIATELY. DUKE RAMOS APRN Jul 20, 2021 14:16
== END 2021-07-20 14:27 | disposition home or self-care (01) ==
LOC: ER 13:35
DX: G43.009 Migraine without aura, not intractable, without status migrainosus (principal); I10 Essential (primary) hypertension; F41.9 Anxiety disorder, unspecified; F32.9 Major depressive disorder, single episode, unspecified; Z88.1 Allergy status to other antibiotic agents; Z88.2 Allergy status to sulfonamides; Z88.8 Allergy status to other drugs, medicaments and biological substances
CPT/HCPCS: 96372; 99283; J2270; Q0162

== ENCOUNTER 2021-07-23 12:26 | Emergency (ER) | payer MEDICARE ==
[~2021-07-23] VITALS: Ht 157.5 cm; Wt 101.0 kg
[2021-07-23] MEDS ORDERED: BUTALB/APAP/CAFEIN 50/325/40MG TABLET. PO PRN (13:00)
--- NOTE | 2021-07-23 13:02 | PHYS DOC ---
Past History Past Medical History: Anxiety, Depression, Hypertension, Migraines, Seizure (DANIEL QUINONEZ) Past Surgical History: Cholecystectomy, Hysterectomy, Other Additional Past Surgical Histo: Shoulder (DANIEL QUINONEZ) Alcohol Use: None (DANIEL QUINONEZ) General Adult EDM: Chief Complaint: HEADACHE HPI: HPI: Patient is a 65 year old female with past medical history that includes migraines who presents with migraine. Patient came to the emergency room directly from her primary care provider's office for treatment for the same. She was given Phenergan and administered oxygen in her primary care doctor's office. She states that she is no longer feeling nauseated, but her migraine remains on the right side of her head, 8.5/10 sharp pain. Patient reports she does get an aura of a sharp pain in the central part of her superior head and a bad taste in her mouth. (DANIEL QUINONZE) Review of Systems: Review of Systems: Constitutional: Denies fever, chills or generalized weakness Eyes: Denies change in visual acuity, visual field deficits or discharge HENT: Denies ear pain, nasal congestion or sore throat Respiratory: Denies cough or shortness of breath Cardiovascular: Denies chest pain, palpitations or edema GI: Denies abdominal pain, nausea, vomiting, bloody stools or diarrhea : Denies dysuria or hematuria Musculoskeletal: Denies back pain or joint pain Integument: Denies rash or other skin lesion Neurologic: See HPI (DANIEL QUINONEZ) Allergies: Allergies: Allergies Coded Allergies Type Severity Reaction Last Updated Verified allopurinol Allergy Intermediate 06/25/21 Yes doxycycline Allergy Intermediate 06/25/21 Yes sulfamethoxazole Allergy Intermediate 06/25/21 Yes sumatriptan Allergy Intermediate ALLERGIC TO "TRIPTANS" 04/06/21 Yes trimethoprim Allergy Intermediate 06/25/21 Yes pecan nut Allergy Unknown 06/25/21 Yes (DANIEL QUINONEZ) Physical Exam: PE: Constitutional: Well developed, well nourished, no acute distress, non-toxic appearance. HENT: Normocephalic, atraumatic, bilateral external ears normal, nose normal. Eyes: PERRL, EOMI, conjunctiva normal, no discharge. Neck: Normal range of motion, no stridor. Skin: Warm, dry, no erythema, no rash. Extremities: No cyanosis, no clubbing, ROM intact, no edema. Neurologic: Alert and oriented x4, normal motor function, normal sensory function, steady and symmetrical upright gait, no focal deficits noted. (DANIEL QUINONEZ) Current Patient Data: Vital Signs: Vital Signs Date Time Temp Pulse Resp B/P (MAP) Pulse Ox O2 Delivery O2 Flow Rate FiO2 07/23/21 12:37 98.2 74 18 187/106 (133) 96 Room Air (DANIEL QUINONEZ) Heart Score: C/O Chest Pain: No (DANIEL QUINONEZ) Course & Med Decision Making: Course & Med Decision Making Pertinent Labs and Imaging studies reviewed. (See chart for details) Patient is a 65-year-old female who presents to the emergency department from her primary care doctor's office with migraine. Patient states she has severe allergic reaction to Imitrex, so patient will be treated with Fioricet. She reports that her primary care doctor has prescribed Nurtec, but it will take some time for it to be approved by her insurance company. She was provided with an electronic prescription for Fioricet for any future episodes. Return precautions were provided. Patient understands and is agreeable to discharge plan. (DANIEL QUINONEZ) Dragon Disclaimer: Draggerald Disclaimer: This electronic medical record was generated, in whole or in part, using a voice recognition dictation system. (DANIEL QUINONEZ) Departure Departure: Impression: Primary Impression: Migraine headache Qualified Codes: G43.109 - Migraine with aura, not intractable, without status migrainosus Additional Impression: Elevated blood pressure reading Disposition: 01 HOME / SELF CARE / HOMELESS Condition: IMPROVED Referrals: EVELYN JORGENSEN (PCP) Patient Instructions: Migraine Headache, [id number] Additional Instructions: EMERGENCY DEPARTMENT GENERAL DISCHARGE INSTRUCTIONS Thank you for coming to [facility] (ED) today and trusting us with you care. We trust that you had a positive experience in our Emergency Department. If you wish to speak to the department management, you may call the director at [phone]. YOUR FOLLOW UP INSTRUCTIONS ARE FOLLOWS: 1. Follow up with your primary care doctor. If you do not have a primary doctor, please ask for a resource list of physicians or clinics that may be able to assist you with follow up care. 2. The emergency provider has interpreted your imaging studies, if any were ordered. The radiology pensions retirement plan specialist also reviewed them. If there is a change in the findings, you will be notified in 48 hours when at all possible. 3. If a lab test or culture has been done, your results will be reviewed and you will be notified if you need a change in treatment. 4. Follow instructions verbalized to you and refer to the printouts if needed. ADDITIONAL INSTRUCTIONS AND INFORMATION: 1. Your care today has been supervised by a physician who is specially trained in emergency care. Many problems require more than one evaluation for a complete diagnosis and treatment. We recommend that you schedule your follow up appointment as recommended to ensure complete treatment of you illness or injury. If you are unable to obtain follow up care and continue to have a problem, or if your condition worsens, we recommend that you return to the ED. 2. We are not able to safely determine your condition over the phone nor are we able to give sound medical advice over the phone. For these safety reasons, if you call for medical advice we will ask you to come to the ED for further evaluation. 3. If you have any questions regarding these discharge instructions please call the ED at [phone]. SAFETY INFORMATION: In the interest of safety, wellness, and injury prevention; we encourage you to wear your seat belt, if you smoke; quite smoking, and we encourage family to use a protective helmet for bicycling and other sporting events that present an increased risk for head injury. IF YOUR SYMPTOMS WORSEN OR NEW SYMPTOMS DEVELOP, OR YOU HAVE CONCERNS ABOUT YOUR CONDITION; OR IF YOUR CONDITION WORSENS WHILE YOU ARE WAITING FOR YOUR FOLLOW UP APPOINTMENT; EITHER CONTACT YOUR PRIMARY CARE DOCTOR, THE PHYSICIAN WHOSE NAME AND NUMBER YOU WERE GIVEN, OR RETURN TO THE ED IMMEDIATELY. Scripts Butalb/Acetaminophen/Caffeine ([id number] 50-325-40) 1 Each Tablet 1 EACH PO 1-2XD for migraine, #10 TAB Prov: DANIEL QUINONEZ 07/23/21 Attending Signature Attending Signature I have reviewed the PA/BUSINESS DEVELOPMENT SALES EXECUTIVE's note and plan of care. I was available for consultation as needed during the patient's visit in the emergency department. I agree with the clinical impression, plan, and disposition. (SHAW,CIARRA DANIEL SPRAGUE Jul 23, 2021 13:02 CIARRA SHAW DO Jul 24, 2021 06:46
[2021-07-23] MEDS ORDERED: BUTA1TAB23 PO (13:08)
== END 2021-07-23 13:50 | disposition home or self-care (01) ==
LOC: ER 12:26
DX: G43.109 Migraine with aura, not intractable, without status migrainosus (principal); I10 Essential (primary) hypertension; F41.9 Anxiety disorder, unspecified; F32.9 Major depressive disorder, single episode, unspecified; Z88.8 Allergy status to other drugs, medicaments and biological substances; Z88.1 Allergy status to other antibiotic agents; Z88.2 Allergy status to sulfonamides; Z91.018 Allergy to other foods
CPT/HCPCS: 99283

== ENCOUNTER 2021-07-26 20:21 | Emergency (ER) | payer MEDICARE ==
[~2021-07-26] VITALS: Ht 160 cm; Wt 106.3 kg
[~2021-07-26 20:21] MED LIST changes: -ACET1TAB33 PO; +ACET1TAB56 PO; +BUTA1TAB23 PO
--- NOTE | 2021-07-26 20:33 | PHYS DOC ---
Past History Past Medical History: Anxiety, Depression, Hypertension, Migraines, Seizure Additional Past Medical Histor: adhd Past Surgical History: Cholecystectomy, Hysterectomy, Other Additional Past Surgical Histo: Shoulder Alcohol Use: None General Adult EDM: Chief Complaint: SEIZURE HPI: HPI: ".. I ve had a seizure.. Sometimes .. I do even through... I take my meds... Lamictal 100 tiwce a day..." .." It been six month since the last time this happen. Patient is a 65 year old female who presents with above hx and complaints of tonic clonic seizue. Pt. also complaint of head ache and neck pain. Patient did have incontinence and vomiting with the seizure. Patient states it been 6 months since her last breakthrough seizure. Patient takes Lamictal 100 twice a day. Patient has past medical history of anxiety, depression, hypertension, migraines, cholecystectomy, hysterectomy, right shoulder surgery, and fibromyalgia. Patient normally follows with [facility]. No recent travel. No sick ill contacts. No history of fever or chills. Review of Systems: Review of Systems: Constitutional: Denies fever or chills Eyes: Denies change in visual acuity HENT: Denies nasal congestion or sore throat Respiratory: Denies cough or shortness of breath Cardiovascular: Denies chest pain or edema GI: Denies abdominal pain, nausea, vomiting, bloody stools or diarrhea : Denies dysuria Musculoskeletal: Denies back pain or joint pain Integument: Denies rash Neurologic: Complains of breakthrough seizure, headache, neck pain. Endocrine: Denies polyuria or polydipsia Lymphatic: Denies swollen glands Psychiatric: Denies depression or anxiety Family History: Family History: Noncontributory to presentation Current Medications: Current Meds: See nursing for home meds Allergies: Allergies: Allergies Coded Allergies Type Severity Reaction Last Updated Verified allopurinol Allergy Intermediate 06/25/21 Yes doxycycline Allergy Intermediate 06/25/21 Yes sulfamethoxazole Allergy Intermediate 06/25/21 Yes sumatriptan Allergy Intermediate ALLERGIC TO "TRIPTANS" 04/06/21 Yes trimethoprim Allergy Intermediate 06/25/21 Yes pecan nut Allergy Unknown 06/25/21 Yes Physical Exam: PE: Constitutional: no acute distress, non-toxic appearance. [] HENT: Normocephalic, atraumatic, bilateral external ears normal, oropharynx moist, no oral exudates, nose normal. [] Eyes: PERRLA, EOMI, conjunctiva normal, no discharge. Glasses Neck: Normal range of motion, no tenderness, supple, no stridor. [] Cardiovascular:Heart rate regular rhythm, no murmur, PMI to left Lungs & Thorax: Bilateral breath sounds equal apex with some basilar crackles on auscultation [] Abdomen: Bowel sounds normal, soft, no tenderness, no masses, no pulsatile masses. Obese. Old surgery scars. Skin: Warm, dry, no erythema, no rash. [] Back: No tenderness, no CVA tenderness. [] Extremities: No tenderness, no cyanosis, no clubbing, ROM intact, no edema. Right shoulder scar. Neurologic: Alert and oriented X 3, normal motor function, normal sensory function, no focal deficits noted. [] Psychologic: Affect anxious, judgement normal, mood normal. [] Current Patient Data: Vital Signs: Vital Signs Date Time Temp Pulse Resp B/P (MAP) Pulse Ox O2 Delivery O2 Flow Rate FiO2 07/26/21 20:23 98.5 70 20 182/108 (132) 95 Room Air EKG: EKG: My interpretation EKG shows a sinus rhythm at 69 bpm. Does have a right axis deviation. There is some nonspecific changes in fatigue in inferior leads. But no findings of acute STEMI with contralateral changes. Time of this EKG is 2050 hrs. My interpretation EKG shows a sinus rhythm at 73 bpm. Mild leftward axis. Slightly prolonged QT interval of 4 and 82 ms. QTC is 536 ms. No findings of acute STEMI of contralateral changes. Overall morphology is essentially unchanged from prior EKG. Time of this EKG is 2300 hrs. Radiology/Procedures: Radiology/Procedures: [[address] [address] IMAGING REPORT Signed PATIENT: NESHA JOHNSON ACCOUNT: [id number] : 1955 LOCATION: ER AGE: 65 SEX: F EXAM STATUS: REG ER ORD. PHYSICIAN: CHASE HILLMAN MD REASON: pain PROCEDURE: PORTABLE CHEST 1V EXAMINATION: Chest radiograph. VIEWS: 1 COMPARISON: 05/10/2021. INDICATION:65 years, Female, chest pain. FINDINGS: Poor inspiratory effort, may accentuate cardiac silhouette and pulmonary vascularity. Stable cardiomediastinal silhouette. Diffuse bilateral pulmonary reticulations. No focal consolidation. No pleural effusion or pneumothorax. No acute osseous process. IMPRESSION: Diffuse bilateral pulmonary reticulations, nonspecific findings and can be seen in mild interstitial pulmonary edema. Electronically signed by: Shannan Monique MD (07/26/2021 9:19 PM) [facility] DICTATED AND SIGNED BY: SHANNAN MONIQUE MD DATE: 07/26/212115 CC: CHASE HILLMAN MD; OXANA LOO ~ ][place] [address] IMAGING REPORT Signed PATIENT: NESHA JOHNSON ACCOUNT: [id number] : 1955 LOCATION: ER AGE: 65 SEX: F EXAM STATUS: REG ER ORD. PHYSICIAN: CHASE HILLMAN MD REASON: seizure , head and neck pain PROCEDURE: CT HEAD AND CERVICAL SPINE WO CT HEAD AND C-SPINE WO Date: 07/26/2021 8:48 PM Clinical Indication: seizure , head and neck pain Comparison: None. Technique: 5 mm axial tomographic images were obtained of the head without contrast. These were viewed on brain and bone windows. CT imaging of the cervical spine was performed without contrast. Coronal and sagittal reformatted images were performed. One or more of the following dose reduction techniques were utilized: Automated exposure control (AEC), Adjustment of mA and/or kV according to patient size, Use of iterative reconstruction technique such as ASiR, CT scan done according to ALARA and image gently/image wisely HEAD FINDINGS: The brain parenchyma is normal in attenuation. No intra- or extra-axial mass or fluid collection. No acute hemorrhage. The ventricles are normal in size, shape, and morphology. The pelaez-white matter junction is normal. The basilar cisterns are patent. The visualized paranasal sinuses are normal. The visualized portions of the orbits and globes are normal. The mastoid air cells are clear. No aggressive osseous lesion or fracture. CERVICAL SPINE FINDINGS: The cervical spine is normally aligned. No acute fracture. No aggressive lytic or blastic osseous lesion. Moderate multilevel degenerative disc height loss. Multilevel disc protrusions and marginal osteophytes results in multilevel mild to moderate spinal canal stenosis. Multilevel uncovertebral and facet arthrosis results in multilevel mild and moderate neural foraminal narrowing. The thyroid gland is normal. No cervical lymphadenopathy. The visualized aerodigestive tract is unremarkable. The visualized lung apices are clear. IMPRESSION: 1. No acute intracranial process. 2. No acute osseous abnormality of the cervical spine. Electronically signed by: Kristine Tim MD (07/26/2021 9:19 PM) [facility] DICTATED AND SIGNED BY: KRISTINE TIM MD DATE: 07/26/212113 CC: CHASE HILLMAN MD; OXANA LOO ~ Heart Score: C/O Chest Pain: N/A HEART Score for Chest Pain: HEART Score for Chest Pain Response (Comments) Value History Slighlty/Non-Suspicious 0 ECG Normal 0 Age >45 - < 65 1 Risk Factors 1 or 2 Risk Factors 1 Troponin < Normal Limit 0 Total 2 Risk Factors: Risk Factors: DM, Current or recent (<one month) smoker, HTN, HLP, family history of CAD, obesity. Risk Scores: Score 0 - 3: 2.5% MACE over next 6 weeks - Discharge Home Score 4 - 6: 20.3% MACE over next 6 weeks - Admit for Clinical Observation Score 7 - 10: 72.7% MACE over next 6 weeks - Early Invasive Strategies Course & Med Decision Making: Course & Med Decision Making Pertinent Labs and Imaging studies reviewed. (See chart for details) Patient to resume her Promacta 100 mg twice a day. Follow-up with primary care. Follow-up with neurology. Push high potassium foods. Monitor blood sugars. Impression: 1. Breakthrough seizure 2. History of seizure disorder 3. Hypokalemia 3.0 4. Diabetes glucose 155 5. Hypertension [] Dragon Disclaimer: Sarah Disclaimer: This electronic medical record was generated, in whole or in part, using a voice recognition dictation system. Departure Departure: Referrals: OXANA LOO (PCP) Sarah Disclaimer This chart was dictated in whole or in part using Voice Recognition software in a busy, high-work load, and often noisy Emergency Department environment. It may contain unintended and wholly unrecognized errors or omissions. Attending Signature Attending Signature I have participated in the care of this patient and I have reviewed and agree with all pertinent clinical information above including history, exam, and recommendations. CHASE HILLMAN MD Jul 26, 2021 20:33
[2021-07-26] MEDS ORDERED: LORazepam 1 MG TABLET ONE (20:41)
[2021-07-26 20:57] LABS: BASO # 0.1 x10^3/uL (0.0-0.2); BASO % 1 % (0-3); EOS # 0.2 x10^3/uL (0.0-0.7); EOS % 2 % (0-3); HEMATOCRIT 37.5 % (36.0-47.0); HEMOGLOBIN 12.2 g/dL (12.0-15.5); LYMPH # 2.3 x10^3/uL (1.0-4.8); LYMPH % 30 % (24-48); MEAN CORPUSCULAR HEMOGLOBIN 28 pg (25-35); MEAN CORPUSCULAR HGB CONC 33 g/dL (31-37); MEAN CORPUSCULAR VOLUME 85 fL (79-100); MONO # 0.6 x10^3/uL (0.0-1.1); MONO % 8 % (0-9); NEUT # 4.7 x10^3uL (1.8-7.7); NEUT % 59 % (31-73); PLATELET COUNT 243 x10^3/uL (140-400); RED BLOOD COUNT 4.39 x10^6/uL (3.50-5.40); RED CELL DISTRIBUTION WIDTH 14.2 % (11.5-14.5); WHITE BLOOD COUNT 7.9 x10^3/uL (4.0-11.0)
[2021-07-26] MEDS ORDERED: IV RINGERS SOLUTION,LACTATED 1,000 ML IV SCH (21:00)
[2021-07-26] MEDS ORDERED: lamoTRIgine 100 MG TABLET. PO ONE (21:00)
[2021-07-26] MEDS ORDERED: LORazepam 1 MG TABLET PO ONE (21:00)
[2021-07-26 21:06] LABS: CREATININE 0.8 mg/dL (0.6-1.0); GFR 72.4
[2021-07-26 21:19] LABS: ALBUMIN 3.5 g/dL (3.4-5.0); DIRECT BILIRUBIN 0.1 mg/dL (0.0-0.2); MAGNESIUM 1.8 mg/dL (1.8-2.4); TOTAL BILIRUBIN 0.3 mg/dL (0.2-1.0); TOTAL PROTEIN 6.6 g/dL (6.4-8.2)
--- NOTE | 2021-07-26 21:21 | RAD ---
CT HEAD AND C-SPINE WO Date: 07/26/2021 8:48 PM Clinical Indication: seizure , head and neck pain Comparison: None. Technique: 5 mm axial tomographic images were obtained of the head without contrast. These were view ed on brain and bone windows. CT imaging of the cervical spine was performed without contrast. Coron al and sagittal reformatted images were performed. One or more of the following dose reduction techni ques were utilized: Automated exposure control (AEC), Adjustment of mA and/or kV according to patient size, Use of iterative reconstruction technique such as ASiR, CT scan done according to ALARA and im age gently/image wisely HEAD FINDINGS: The brain parenchyma is normal in attenuation. No intra- or extra-axial mass or fluid collection. No acute hemorrhage. The ventricles are normal in size, shape, and morphology. The pelaez-white matter reshma ction is normal. The basilar cisterns are patent. The visualized paranasal sinuses are normal. The visualized portions of the orbits and globes are no rmal. The mastoid air cells are clear. No aggressive osseous lesion or fracture. CERVICAL SPINE FINDINGS: The cervical spine is normally aligned. No acute fracture. No aggressive lytic or blastic osseous les ion. Moderate multilevel degenerative disc height loss. Multilevel disc protrusions and marginal osteophyt es results in multilevel mild to moderate spinal canal stenosis. Multilevel uncovertebral and facet a rthrosis results in multilevel mild and moderate neural foraminal narrowing. The thyroid gland is normal. No cervical lymphadenopathy. The visualized aerodigestive tract is unrem arkable. The visualized lung apices are clear. IMPRESSION: 1. No acute intracranial process. 2. No acute osseous abnormality of the cervical spine. Electronically signed by: Joe Tim MD (07/26/2021 9:19 PM) [facility]ITALNeva
--- NOTE | 2021-07-26 21:21 | RAD ---
EXAMINATION: Chest radiograph. VIEWS: 1 COMPARISON: 05/10/2021. INDICATION:65 years, Female, chest pain. FINDINGS: Poor inspiratory effort, may accentuate cardiac silhouette and pulmonary vascularity. Stable cardiome diastinal silhouette. Diffuse bilateral pulmonary reticulations. No focal consolidation. No pleural e ffusion or pneumothorax. No acute osseous process. IMPRESSION: Diffuse bilateral pulmonary reticulations, nonspecific findings and can be seen in mild interstitial pulmonary edema. Electronically signed by: Martha Monique MD (07/26/2021 9:19 PM) JULIA
[2021-07-26] MEDS ORDERED: oxyCODONE/APAP 5/325 1 TAB TABLET ONE (21:25)
[2021-07-26] MEDS ORDERED: POTASSIUM CHLORIDE 20 MEQ TABLET.ER. PO ONE (21:45)
[2021-07-26] MEDS ORDERED: KETOROLAC 60 MG/2 ML VIAL. IM ONE (22:38)
[2021-07-26 23:08] LABS: CLARITY,URINE CLEAR; COLOR,URINE YELLOW; GLUCOSE,URINE NEG (NEG); NITRITE,URINE NEG (NEG); UROBILINOGEN,URINE 0.2 mg/dL (0.2 mg/dL)
[2021-07-26 23:09] LABS: BACTERIA,URINE FEW /HPF (0-FEW); BARBITURATES POS (NEG); BENZODIAZEPINES NEG (NEG); CANNABINOIDS NEG (NEG); COCAINE NEG (NEG); METHADONE NEG (NEG); OPIATES NEG (NEG); PHENCYCLIDINE NEG (NEG); RBC,URINE 0 /HPF (0-2); SQUAMOUS EPITHELIAL CELL,UR FEW /LPF
[2021-07-26 23:11] LABS: AMPHETAMINE/METHAMPHETAMINE NEG (NEG)
[2021-07-26 23:12] LABS: INFLUENZA A PATIENT NEGATIVE (NEGATIVE); INFLUENZA B PATIENT NEGATIVE (NEGATIVE)
[2021-07-26 23:50] VITALS: BP 149/87
--- NOTE | 2021-07-27 01:12 | EKG ---
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
--- NOTE | 2021-07-27 01:14 | EKG ---
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
== END 2021-07-26 23:56 | disposition home or self-care (01) ==
LOC: ER 20:21
DX: G40.909 Epilepsy, unspecified, not intractable, without status epilepticus (principal); E87.6 Hypokalemia; E11.9 Type 2 diabetes mellitus without complications; I10 Essential (primary) hypertension; F41.9 Anxiety disorder, unspecified; F32.9 Major depressive disorder, single episode, unspecified; G43.909 Migraine, unspecified, not intractable, without status migrainosus; M79.7 Fibromyalgia; Z20.822 Contact with and (suspected) exposure to COVID-19; Z88.2 Allergy status to sulfonamides; Z88.1 Allergy status to other antibiotic agents; Z88.8 Allergy status to other drugs, medicaments and biological substances; Z91.018 Allergy to other foods
CPT/HCPCS: 36415; 70450; 71045; 72125; 80048; 80076; 80307; 81001; 82550; 83690; 83735; 83880; 84443; 84484; 85025; 85610; 85730; 87086; 87428; 93005; 99285; J7120

== ENCOUNTER 2021-07-28 16:01 | Emergency (ER) | payer MEDICARE ==
[~2021-07-28] VITALS: Ht 160 cm; Wt 106.3 kg
--- NOTE | 2021-07-28 16:04 | PHYS DOC ---
Past History Past Medical History: Anxiety, Depression, Hypertension, Migraines, Seizure Additional Past Medical Histor: adhd Past Surgical History: Cholecystectomy, Hysterectomy Additional Past Surgical Histo: shoulder replacement right side Alcohol Use: None General Adult EDM: Chief Complaint: SEIZURE HPI: HPI: Patient is a 65-year-old female who is brought in by EMS for reported seizure activity. The patient reports that she has seizures, reportedly treated by Lamictal. She does not have a diagnosis of epilepsy. The patient lives alone. She reports that she woke up and had vomited and urinated on herself, was able to get up to change her clothing call 911. She reports that she thinks she fell between the table and the sofa. She does report having a mild headache and neck pain. She denies numbness or tingling or motor weakness. She was ambulatory for EMS, ambulatory here. She is awake, alert, fully oriented. She has no complaints of chest pain, dyspnea, abdominal pain, nausea, vomiting. She denies dizziness or vertigo. She was seen here a few days ago for the same symptoms, underwent imaging studies and laboratory exams. She was found to have mild hypokalemia. She reports that she has not been sleeping very well. She has been eating and drinking well. She denies subjective urinary symptoms. She denies fevers or chills. She denies use of illicit drugs, alcohol or benzodiazepines. No recent cessation of alcohol or benzodiazepines. She reports that she had a neurologist in [place], but she does not have a neurologist here. Review of Systems: Review of Systems: Constitutional: Denies fever or chills Eyes: Denies change in visual acuity, denies visual aura, floaters, vision loss. HENT: Denies nasal congestion or sore throat Respiratory: Denies cough or shortness of breath Cardiovascular: Denies chest pain or edema GI: Denies abdominal pain. She reports no nausea or vomiting symptoms cu rrently. She reports that she vomited at home. : Denies urinary symptoms. Musculoskeletal: Denies back pain or joint pain Integument: Denies rash Neurologic: Report mild headache symptoms, consistent with her usual headaches that she has after seizure activity. Denies numbness, tingling, focal motor weakness. Seizure-like activity has been reported. She is not currently postictal. No confusion or altered mental status. Denies dizziness or vertigo symptoms. Psychiatric: Chronic mood disturbance. Denies SI or HI. Allergies: Allergies: Allergies Coded Allergies Type Severity Reaction Last Updated Verified allopurinol Allergy Intermediate 06/25/21 Yes doxycycline Allergy Intermediate 06/25/21 Yes sulfamethoxazole Allergy Intermediate 06/25/21 Yes sumatriptan Allergy Intermediate ALLERGIC TO "TRIPTANS" 04/06/21 Yes trimethoprim Allergy Intermediate 06/25/21 Yes pecan nut Allergy Unknown 06/25/21 Yes Physical Exam: PE: Constitutional: Well developed, well nourished, no acute distress, non-toxic appearance. [] HENT: Normocephalic, atraumatic, oropharynx is patent and clear. No evidence of facial or oral trauma. Dentition is extremely poor, multiple caries, multiple missing teeth. No acute dental trauma is noted. TMs are clear bilaterally. No hemotympanum. External ears are normal bilaterally. No otorrhea. Nares are patent clear without rhinorrhea or epistaxis. No evidence of oral or tongue trauma. No bleeding or swelling. Eyes: PERRL, EOMI, conjunctiva normal, no discharge. No nystagmus. No scleral icterus. No periorbital edema, erythema or contusion. Neck: Normal range of motion, no tenderness, supple, no stridor. No JVD. No meningismus. Cardiovascular:Heart rate regular rhythm, +2 radial and +2 posterior tibial pulses bilaterally. Lungs & Thorax: Lungs are clear to auscultation bilaterally without rales, rhonchi or wheezes. Equal chest rise. Evidence of chest or thorax trauma Abdomen: Abdomen is soft, obese, nondistended, nontender to palpation. Normal bowel sounds. Skin: Warm, dry, no erythema, no rash. No open wounds. No abrasions. No jaundice. Back: No tenderness, no CVA tenderness. No step-offs, no midline tenderness, no deformity, full painless range of motion. Extremities: No tenderness, no cyanosis, no clubbing, ROM intact, no edema. No limb deformity. No calf tenderness. Pelvis is stable Neurologic: She is awake, alert, oriented x3. Cranial nerves II through XII grossly intact. 5 out of 5 motor strength all 4 extremities. Sensation is grossly intact. No limb ataxia. Speech is clear and fluent. Psychologic: Affect is flat. EKG: EKG: [] Radiology/Procedures: Radiology/Procedures: [] Heart Score: C/O Chest Pain: No Risk Factors: Risk Factors: DM, Current or recent (<one month) smoker, HTN, HLP, family history of CAD, obesity. Risk Scores: Score 0 - 3: 2.5% MACE over next 6 weeks - Discharge Home Score 4 - 6: 20.3% MACE over next 6 weeks - Admit for Clinical Observation Score 7 - 10: 72.7% MACE over next 6 weeks - Early Invasive Strategies Course & Med Decision Making: Course & Med Decision Making Pertinent Labs and Imaging studies reviewed. (See chart for details) The patient the patient is given p.o. potassium replacement here. P.o. Tylenol given for headache. She has not manifested any seizure activity. No confusion or altered mental state manifested here. I reviewed previous imaging studies from her most recent ED visit. There is no clinical indication for repeat imaging at this time. I have discussed the findings, differential diagnosis and plan of care with her. I recommended she contact her PCP for follow-up. She may need some repeat labs, she should also see outpatient neurology services. I am uncertain if these are true seizures or not, based on her description and the lack of definitive neurology diagnosis, as well as the medications prescribed for the seizure-like activity, I do question this diagnosis. I told her to make sure she stays hydrated, drinks plenty of fluids, she should get plenty of rest, sleep deprivation may precipitate seizures. No indication for admission or transfer at this time. Return precautions are given. Sarah Disclaimer: Sarah Disclaimer: This electronic medical record was generated, in whole or in part, using a voice recognition dictation system. Departure Departure: Impression: Primary Impression: Seizure-like activity Additional Impression: Hypokalemia Disposition: HOME / SELF CARE / HOMELESS Condition: STABLE Referrals: EVELYN JORGENSEN (PCP) Patient Instructions: Hypokalemia, Seizure, Adult Additional Instructions: Please contact your primary care doctor this week to discuss this issue further. You should take your prescription medications as directed. Make sure you stay hydrated, get plenty of rest, sleep probation may precipitate seizures. Return for acute injury or trauma, difficulty breathing, severe chest pain, abdominal pain, uncontrolled vomiting, dehydration, focal weakness or other concerns. You should talk to your doctor about getting an outpatient neurology referral as well. Scripts Potassium Chloride (KLOR-CON 10) 10 Meq Tablet.er 1 TAB PO DAILY for hypokalemia, #20 TAB 0 Refills Prov: KAM QUIJANO DO 07/28/21 KAM QUIJANO DO Jul 28, 2021 16:04
[2021-07-28 16:18] VITALS: BP 162/99
[2021-07-28 17:04] LABS: BASO # 0.1 x10^3/uL (0.0-0.2); BASO % 1 % (0-3); EOS # 0.2 x10^3/uL (0.0-0.7); EOS % 3 % (0-3); HEMATOCRIT 38.8 % (36.0-47.0); HEMOGLOBIN 12.8 g/dL (12.0-15.5); LYMPH # 2.3 x10^3/uL (1.0-4.8); LYMPH % 30 % (24-48); MEAN CORPUSCULAR HEMOGLOBIN 28 pg (25-35); MEAN CORPUSCULAR HGB CONC 33 g/dL (31-37); MEAN CORPUSCULAR VOLUME 85 fL (79-100); MONO # 0.7 x10^3/uL (0.0-1.1); MONO % 9 % (0-9); NEUT # 4.3 x10^3uL (1.8-7.7); NEUT % 57 % (31-73); PLATELET COUNT 248 x10^3/uL (140-400); RED BLOOD COUNT 4.55 x10^6/uL (3.50-5.40); WHITE BLOOD COUNT 7.5 x10^3/uL (4.0-11.0)
[2021-07-28 17:09] LABS: CALCIUM 9.6 mg/dL (8.5-10.1); CREATININE 0.9 mg/dL (0.6-1.0); GFR 63.2
[2021-07-28 17:10] LABS: MAGNESIUM 1.8 mg/dL (1.8-2.4)
[2021-07-28] MEDS ORDERED: POTASSIUM CHLORIDE 20 MEQ TABLET.ER. PO ONE (17:45)
[2021-07-28] MEDS ORDERED: POTA-112 PO (17:52)
[2021-07-28] MEDS ORDERED: ACETAMINOPHEN 500 MG TABLET PO ONE (18:00)
== END 2021-07-28 18:03 | disposition home or self-care (01) ==
LOC: ER 16:01
DX: E87.6 Hypokalemia (principal); R56.9 Unspecified convulsions; F41.9 Anxiety disorder, unspecified; F32.9 Major depressive disorder, single episode, unspecified; I10 Essential (primary) hypertension; G43.909 Migraine, unspecified, not intractable, without status migrainosus; Z88.1 Allergy status to other antibiotic agents; Z88.2 Allergy status to sulfonamides; Z91.018 Allergy to other foods
CPT/HCPCS: 36415; 80048; 83735; 85025; 99282

== ENCOUNTER 2021-07-30 16:37 | Emergency (ER) | payer MEDICARE ==
[~2021-07-30] VITALS: Ht 160 cm; Wt 63.0 kg
[~2021-07-30 16:37] MED LIST changes: +POTA-112 PO
[2021-07-30 16:53] VITALS: BP 194/115
--- NOTE | 2021-07-30 17:07 | PHYS DOC ---
Past History Past Medical History: Anxiety, Depression, Hypertension, Migraines, Seizure Additional Past Medical Histor: adhd, psuedoseizures (LAURENCE ROSE APRN) Past Surgical History: Cholecystectomy, Hysterectomy Additional Past Surgical Histo: shoulder replacement right side (LAURENCE ROES APRN) Alcohol Use: None (LAURENCE ROSE APRN) General Adult EDM: Chief Complaint: OTHER COMPLAINTS HPI: HPI: Patient is an 65-year-old female who presents to the emergency department for seizure-like activity. Patient reports that she had 2 unwitnessed seizures today. Unsure of how long the seizure lasted. Patient is unsure of what type of seizure she has but believes it is tonic-clonic. Patient reports no diagnosis of epilepsy. She reports a history of pseudoseizures and migraines. Patient states that she takes Lamictal 100 mg twice a day and she reports that she has not missed any doses. Patient reports that she had 1 episode of incontinence following one of the seizures today. Unknown she had a postictal period. Patient denies chest pain, shortness of breath, nausea, vomiting, fevers. (LAURENCE ROSE APRN) Review of Systems: Review of Systems: Constitutional: See HPI Respiratory: See HPI Cardiovascular: See HPI GI: See HPI : See HPI Musculoskeletal: See HPI Neurologic: See HPI (LAURENCE ROSE APRN) Allergies: Allergies: Allergies Coded Allergies Type Severity Reaction Last Updated Verified allopurinol Allergy Intermediate 06/25/21 Yes doxycycline Allergy Intermediate 06/25/21 Yes sulfamethoxazole Allergy Intermediate 06/25/21 Yes sumatriptan Allergy Intermediate ALLERGIC TO "TRIPTANS" 04/06/21 Yes trimethoprim Allergy Intermediate 06/25/21 Yes pecan nut Allergy Unknown 06/25/21 Yes (LAURENCE ROSE APRN) Physical Exam: PE: Constitutional: Well developed, well nourished, no acute distress, non-toxic appearance. [] HENT: Normocephalic, atraumatic, bilateral external ears normal, oropharynx moist, no oral exudates, nose normal. [] Eyes: PERRL, 4mm bilaterally, no nystagmus, EOMI, conjunctiva normal, no discharge. [] Neck: Normal range of motion, no tenderness, supple, no stridor. [] Cardiovascular:Heart rate regular rhythm, no murmur [] Lungs & Thorax: Bilateral breath sounds clear to auscultation [] Abdomen: Bowel sounds normal, soft, no tenderness, no masses, no pulsatile masses. [] Skin: Warm, dry, no erythema, no rash. [] Back: No tenderness, normal ROM Extremities: No tenderness, no cyanosis, no clubbing, ROM intact, no edema. [] Neurologic: Alert and oriented X 3, normal motor function, normal sensory function, no focal deficits noted, ambulatory in ER, no limb ataxia, moving all 4 extremities equally. [] Psychologic: Affect normal, judgement normal, mood normal. [] (LAURENCE ROSE APRN) Current Patient Data: Labs: Laboratory Tests Test 07/30/21 16:57 07/30/21 19:00 White Blood Count 6.7 x10^3/uL Red Blood Count 4.64 x10^6/uL Hemoglobin 13.0 g/dL Hematocrit 39.6 % Mean Corpuscular Volume 86 fL Mean Corpuscular Hemoglobin 28 pg Mean Corpuscular Hemoglobin Concent 33 g/dL Red Cell Distribution Width 14.2 % Platelet Count 257 x10^3/uL Neutrophils (%) (Auto) 58 % Lymphocytes (%) (Auto) 30 % Monocytes (%) (Auto) 8 % Eosinophils (%) (Auto) 2 % Basophils (%) (Auto) 1 % Neutrophils # (Auto) 3.9 x10^3uL Lymphocytes # (Auto) 2.0 x10^3/uL Monocytes # (Auto) 0.5 x10^3/uL Eosinophils # (Auto) 0.1 x10^3/uL Basophils # (Auto) 0.1 x10^3/uL Sodium Level 138 mmol/L Potassium Level 3.4 mmol/L Chloride Level 101 mmol/L Carbon Dioxide Level 23 mmol/L Anion Gap 14 Blood Urea Nitrogen 9 mg/dL Creatinine 0.8 mg/dL Estimated GFR (Cockcroft-Gault) 72.4 BUN/Creatinine Ratio 11 Glucose Level 130 mg/dL Lactic Acid Level 2.1 mmol/L Calcium Level 9.6 mg/dL Total Bilirubin 0.4 mg/dL Aspartate Amino Transf (AST/SGOT) 21 U/L Alanine Aminotransferase (ALT/SGPT) 23 U/L Alkaline Phosphatase 115 U/L Total Protein 7.0 g/dL Albumin 3.6 g/dL Albumin/Globulin Ratio 1.1 Magnesium Level 1.9 mg/dL Troponin I High Sensitivity 10 ng/L Vital Signs: Vital Signs Date Time Temp Pulse Resp B/P (MAP) Pulse Ox O2 Delivery O2 Flow Rate FiO2 07/30/21 16:53 91 18 194/115 (141) 95 (LAURENCE ROSE APRN) EKG: EKG: EKG performed by ER staff at 1706 shows sinus rhythm with rate of 87, QTc is 47, no STEMI read by Dr. Savage at 1707. [] (LAURENCE ROSE APRN) Radiology/Procedures: Radiology/Procedures: [] (LAURENCE ROSE APRN) Heart Score: C/O Chest Pain: No Risk Factors: Risk Factors: DM, Current or recent (<one month) smoker, HTN, HLP, family hist ory of CAD, obesity. Risk Scores: Score 0 - 3: 2.5% MACE over next 6 weeks - Discharge Home Score 4 - 6: 20.3% MACE over next 6 weeks - Admit for Clinical Observation Score 7 - 10: 72.7% MACE over next 6 weeks - Early Invasive Strategies (LAURENCE ROSE APRN) Course & Med Decision Making: Course & Med Decision Making Pertinent Labs and Imaging studies reviewed. (See chart for details) Patient presents to the ER for seizure like activity. Patient appears to have a hx of pseudoseizures, she reports taking lamictal 100mg bid and has not missed doses, she reports that she does not have a neurologist in which she follows up with. Patient has been seen several times in this ER within the week for similar complaints. Work up in the ER consists of blood work including lamictal level, lactic acid, troponin, UA, UDS. Patient appears to have had a CT of her head 2 days ago that was unremarkable. Patient is limited to levels as a nonchalantly notified of those results may become available. Patient was noted to have mild hypokalemia with a potassium of 3.4 this was replaced in the emergency department patient advised to eat potassium rich foods. Mild elevation in lactic acid level. Negative troponin. Magnesium is within normal limits. No seizure-like activity while in the emergency department. Patient is advised to continue taking her Lamictal as prescribed and follow-up with the neurologist. I discussed with patient all findings and diagnostic testing as well as the need to follow-up with PCP for further evaluation and treatment or return to the ER if any new or worsening symptoms. Strict return precautions were also discussed at length. Patient voiced understanding and agreement with the plan. Patient is hemodynamically stable at the time of disposition. (LAURENCE ROSE APRN) Course & Med Decision Making Did not see or evaluate patient. Did not discuss patient with MARKETING STRATEGY ANALYST. Generally agree with MARKETING STRATEGY ANALYST's work-up and disposition per note. (MARY STEWARD MD) Dragon Disclaimer: Dragon Disclaimer: This electronic medical record was generated, in whole or in part, using a voice recognition dictation system. (LAURENCE ROSE APRN) Departure Departure: Impression: Primary Impression: Seizure-like activity Disposition: HOME / SELF CARE / HOMELESS Condition: GOOD Referrals: EVELYN JORGENSEN (PCP) CASTILLO FLORES MD Patient Instructions: Nonepileptic Seizures Additional Instructions: You are seen in the emergency department today for seizure-like activity. Your blood work is unremarkable other than a mildly low potassium level. Please make sure that you are eating potassium rich foods at home like premedicate vegetables and bananas. Continue to take your Lamictal as prescribed to make sure we are not missing any doses. Sent off a Lamictal level and you will be notified of your results when they become available in approximately 1 to 2 days. Please follow-up with your primary care provider tomorrow regarding your ER visit. You will need to follow-up with the neurologist in 1 is attached on to this discharge paperwork. Return to the emergency department if you develop any seizure-like activity, high fevers refractory to treatment, intractable nausea or vomiting, shortness of breath, chest pain, confusion, poor coordination, speech changes or any new or worsening concerns. LAURENCE ROSE APRN Jul 30, 2021 17:07 MARY STEWARD MD Jul 30, 2021 20:49
--- NOTE | 2021-07-30 17:17 | EKG ---
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
[2021-07-30 17:33] LABS: BASO # 0.1 x10^3/uL (0.0-0.2); BASO % 1 % (0-3); EOS # 0.1 x10^3/uL (0.0-0.7); EOS % 2 % (0-3); HEMATOCRIT 39.6 % (36.0-47.0); LYMPH % 30 % (24-48); MEAN CORPUSCULAR HEMOGLOBIN 28 pg (25-35); MEAN CORPUSCULAR HGB CONC 33 g/dL (31-37); MEAN CORPUSCULAR VOLUME 86 fL (79-100); MONO # 0.5 x10^3/uL (0.0-1.1); MONO % 8 % (0-9); NEUT # 3.9 x10^3uL (1.8-7.7); NEUT % 58 % (31-73); PLATELET COUNT 257 x10^3/uL (140-400); RED BLOOD COUNT 4.64 x10^6/uL (3.50-5.40); RED CELL DISTRIBUTION WIDTH 14.2 % (11.5-14.5); WHITE BLOOD COUNT 6.7 x10^3/uL (4.0-11.0)
[2021-07-30 17:46] LABS: CALCIUM 9.6 mg/dL (8.5-10.1); CREATININE 0.8 mg/dL (0.6-1.0); GFR 72.4; POTASSIUM 3.4 mmol/L (3.5-5.1)
[2021-07-30 17:51] LABS: ALBUMIN 3.6 g/dL (3.4-5.0); ALBUMIN/GLOBULIN RATIO 1.1 (1.0-1.7); TOTAL BILIRUBIN 0.4 mg/dL (0.2-1.0)
[2021-07-30] MEDS ORDERED: POTASSIUM CHLORIDE 20 MEQ TABLET.ER. PO ONE (19:45)
[2021-07-30] MEDS ORDERED: KETOROLAC 30 MG/ML VIAL. ONE (19:48)
[2021-07-30] MEDS ORDERED: KETOROLAC 30 MG/ML VIAL. IM ONE (20:00)
== END 2021-07-30 19:55 | disposition home or self-care (01) ==
LOC: ER 16:37
DX: R56.9 Unspecified convulsions (principal); F41.9 Anxiety disorder, unspecified; F32.9 Major depressive disorder, single episode, unspecified; I10 Essential (primary) hypertension; G43.909 Migraine, unspecified, not intractable, without status migrainosus; Z88.2 Allergy status to sulfonamides; Z88.1 Allergy status to other antibiotic agents; Z91.018 Allergy to other foods; Z88.8 Allergy status to other drugs, medicaments and biological substances
CPT/HCPCS: 36415; 80053; 80175; 83605; 83735; 84484; 85025; 93005; 99283

== ENCOUNTER 2021-08-02 19:50 | Emergency (ER) | payer MEDICARE ==
[~2021-08-02] VITALS: Ht 160 cm; Wt 102.8 kg
--- NOTE | 2021-08-02 20:10 | PHYS DOC ---
Past History Past Medical History: Anxiety, Depression, Hypertension, Migraines, Seizure Additional Past Medical Histor: adhd, psuedoseizures Past Surgical History: Cholecystectomy, Hysterectomy Additional Past Surgical Histo: shoulder replacement right side Alcohol Use: None Adult General HPI HPI Patient is a 65-year-old female with a past medical history of migraines who presents complaining of a migraine headache over the last 1 to 2 days, whole head, 7 out of 10, dull and achy in nature similar to previous migraines. States she took some Excedrin at home with minimal relief. States she had some mild nausea but no vomiting. Denies any recent traumas, travels, illnesses, fevers, neck pain, chest pain, shortness of breath, abdominal pain, vomiting, dysuria, hematuria, blood in the stool or diarrhea. Review of Systems Review of Systems Review of systems otherwise unremarkable except noted in HPI Allergies Allergies Allergies Coded Allergies Type Severity Reaction Last Updated Verified allopurinol Allergy Intermediate 06/25/21 Yes doxycycline Allergy Intermediate 06/25/21 Yes sulfamethoxazole Allergy Intermediate 06/25/21 Yes sumatriptan Allergy Intermediate ALLERGIC TO "TRIPTANS" 04/06/21 Yes trimethoprim Allergy Intermediate 06/25/21 Yes pecan nut Allergy Unknown 06/25/21 Yes Physical Exam Physical Exam Constitutional: Well developed, well nourished, no acute distress, non-toxic appearance. [] HENT: Normocephalic, atraumatic, bilateral external ears normal, oropharynx moist, no oral exudates, nose normal. [] Eyes: PERRLA, EOMI, conjunctiva normal, no discharge. [] Neck: Normal range of motion, no tenderness, supple, no stridor. [] Cardiovascular:Heart rate regular rhythm, no murmur [] Lungs & Thorax: Bilateral breath sounds clear to auscultation [] Abdomen: soft, no tenderness, no masses, no pulsatile masses. [] Skin: Warm, dry, no erythema, no rash. [] Back: No tenderness, no CVA tenderness. [] Extremities: No tenderness, no cyanosis, no clubbing, ROM intact, no edema. [] Neurologic: Alert and oriented X 3, normal motor function, normal sensory function, able to sit, stand and walk without issue, no focal deficits noted. [] Psychologic: Affect normal, judgement normal, mood normal. [] EKG EKG [] Radiology/Procedures Radiology/Procedures [] Heart Score C/O Chest Pain: No Risk Factors: Risk Factors: DM, Current or recent (<one month) smoker, HTN, HLP, family history of CAD, obesity. Risk Scores: Risk Factors: DM, Current or recent (<one month) smoker, HTN, HLP, family history of CAD, obesity. Course & Med Decision Making Course & Med Decision Making Patient is a 65-year-old female who presents to the emergency department complaining of a migraine headache Vital signs . Physical exam noted above. Given medications for symptom control in the emergency department. On reassessment patient feeling better and felt as she could go on home. Discussed symptom control at home. Advised to follow-up with primary care on Wednesday to update on ED visit and set up a follow-up visit Gave return precautions to the ED. Patient grateful, verbalized understanding and agreed with plan of discharge Dragon Disclaimer Dragon Disclaimer This electronic medical record was generated, in whole or in part, using a voice recognition dictation system. Departure Departure: Impression: Primary Impression: Headache Disposition: 01 HOME / SELF CARE / HOMELESS Condition: STABLE Referrals: EVELYN JORGENSEN (PCP) Patient Instructions: General Headache Without Cause Additional Instructions: Thank you for coming into the emergency department tonight and allowing us to take care of you. Please read the attached information carefully go over things we discussed. Please be sure to eat at least 3 nutritious meals daily and stay well-hydrated. You can begin a Tylenol, ibuprofen and Benadryl regimen as we discussed. Please follow-up on Wednesday with your primary care physician update on your ED visit and set up a follow-up. Please come back with new or concerning symptoms as discussed. MARY STEWARD MD Aug 02, 2021 20:10
[2021-08-02] MEDS ORDERED: KETOROLAC 60 MG/2 ML VIAL. IM ONE (20:30)
[2021-08-02] MEDS ORDERED: diphenhydrAMINE HCL 25 MG CAPSULE PO ONE (20:30)
[2021-08-02] MEDS ORDERED: ONDANSETRON ODT 4 MG TAB.RAPDIS PO ONE (20:30)
[2021-08-02] MEDS ORDERED: PROCHLORPERAZINE 10 MG/2 ML VIAL. IM ONE (20:30)
[2021-08-02 21:15] VITALS: BP 151/87
[2021-08-02] MEDS ORDERED: oxyCODONE/APAP 5/325 1 TAB TABLET PO ONE (21:15)
== END 2021-08-02 21:20 | disposition home or self-care (01) ==
LOC: ER 19:50
DX: G43.909 Migraine, unspecified, not intractable, without status migrainosus (principal); F41.9 Anxiety disorder, unspecified; F32.9 Major depressive disorder, single episode, unspecified; I10 Essential (primary) hypertension; Z88.1 Allergy status to other antibiotic agents; Z88.2 Allergy status to sulfonamides; Z88.8 Allergy status to other drugs, medicaments and biological substances; Z91.018 Allergy to other foods
CPT/HCPCS: 96372; 99283; J0780; J1885; Q0162; Q0163

== ENCOUNTER 2021-08-06 16:26 | Emergency (ER) | payer MEDICARE ==
[~2021-08-06] VITALS: Ht 160 cm; Wt 102.8 kg
--- NOTE | 2021-08-06 18:51 | PHYS DOC ---
Past History Past Medical History: Anxiety, Depression, Hypertension, Migraines, Seizure Additional Past Medical Histor: adhd, psuedoseizures Past Surgical History: Cholecystectomy, Hysterectomy, Other Additional Past Surgical Histo: shoulder replacement right side Alcohol Use: None General Adult EDM: Chief Complaint: PSYCH EVALUATION HPI: HPI: Patient is a 65 year old female who presents with concern for psychiatric evaluation. Patient has anxiety disorder, panic disorder, PTSD and depression. She moved to the [facility] and April of this year, and has been struggling since. She was unable to take her dog with her when she moved, which has caused her great emotional distress. Additionally, she only moved here to be closer to her family, as her daughter is struggling financially and legally. Patient has a hard time opening up to strangers, so has not started therapy yet. She has also developed psychogenic seizures since moving here. Patient is concerned for her wellbeing. Additionally, she has run out of her Klonopin that she is prescribed, 3 tablets monthly. She denies SI, HI, audio/visual/tactile hallucinations. Review of Systems: Review of Systems: Constitutional: Denies fever, chills or generalized weakness Eyes: Denies change in visual acuity, visual field deficits or discharge HENT: Denies ear pain, nasal congestion or sore throat Respiratory: Denies cough or shortness of breath Cardiovascular: Denies chest pain, palpitations or edema GI: Denies abdominal pain, nausea, vomiting, bloody stools or diarrhea : Denies dysuria or hematuria Musculoskeletal: Denies back pain or joint pain Integument: Denies rash or other skin lesion Neurologic: Denies headache, focal weakness or sensory changes Psychiatric: See HPI Allergies: Allergies: Allergies Coded Allergies Type Severity Reaction Last Updated Verified allopurinol Allergy Intermediate 06/25/21 Yes doxycycline Allergy Intermediate 06/25/21 Yes sulfamethoxazole Allergy Intermediate 06/25/21 Yes sumatriptan Allergy Intermediate ALLERGIC TO "TRIPTANS" 04/06/21 Yes trimethoprim Allergy Intermediate 06/25/21 Yes pecan nut Allergy Unknown 06/25/21 Yes Physical Exam: PE: Constitutional: Well developed, well nourished, no acute distress, non-toxic appearance, patient is slightly disheveled and not well groomed. HENT: Normocephalic, atraumatic, bilateral external ears normal, nose normal. Eyes: EOMI, conjunctiva normal, no discharge. Neck: Normal range of motion, no stridor. Cardiovascular: Heart rate regular rhythm, no murmur. Lungs & Thorax: Bilateral breath sounds clear to auscultation. Abdomen: Bowel sounds normal, soft, no tenderness, no masses, no pulsatile masses. Skin: Warm, dry, no erythema, no rash. Extremities: No tenderness, no cyanosis, no clubbing, ROM intact, no edema. Neurologic: Alert and oriented x4, normal motor function, normal sensory function, no focal deficits noted. Psychiatric: Depressed affect, fair judgment, good insight, mood "I do not know what to do." Current Patient Data: Vital Signs: Vital Signs Date Time Temp Pulse Resp B/P (MAP) Pulse Ox O2 Delivery O2 Flow Rate FiO2 08/06/21 19:43 78 16 165/90 (115) 98 Room Air 08/06/21 16:45 98.2 81 16 176/98 (124) 98 Room Air Heart Score: C/O Chest Pain: No Course & Med Decision Making: Course & Med Decision Making Pertinent Labs and Imaging studies reviewed. (See chart for details) Patient is a 65-year-old female who moved to the area in April of this year from [place]. In addition to moving to a new state, she had to leave behind her dog and has been dealing with her daughters financial and legal troubles as well. Patient typically takes Klonopin for anxiety attacks. She is prescribed 3/month, but has already used hers for this month. She will be provided with 1 Klonopin here in the ER. Denae CORDON spoke with and evaluated the patient. At this time, she is not experiencing SI/HI. Patient is not a harm to herself or others at this point. She does have an appointment at the [facility] tomorrow morning, which we will strongly advised that she attend. She was also provided with a list of community resources that might aid in her socioeconomic situation, allowing her to reobtain a cell phone. All of these resources were discussed at length with the patient. Return precautions were provided. Patient understands and is agreeable to discharge plan. [place] Disclaimer: Dragon Disclaimer: This electronic medical record was generated, in whole or in part, using a voice recognition dictation system. Departure Departure: Impression: Primary Impression: Mixed anxiety and depressive disorder Additional Impressions: History of panic disorder History of pseudoseizure Disposition: 01 HOME / SELF CARE / HOMELESS Condition: STABLE Referrals: EVELYN JORGENSEN (PCP) Patient Instructions: Anxiety and Panic Attacks, [id number], Depression, Adul t, [id number] Additional Instructions: EMERGENCY DEPARTMENT GENERAL DISCHARGE INSTRUCTIONS Thank you for coming to [facility] (ED) today and trusting us with you care. We trust that you had a positive experience in our Emergency Department. If you wish to speak to the department management, you may call the director at [phone]. YOUR FOLLOW UP INSTRUCTIONS ARE FOLLOWS: 1. Follow up with your primary care doctor. If you do not have a primary doctor, please ask for a resource list of physicians or clinics that may be able to assist you with follow up care. 2. The emergency provider has interpreted your imaging studies, if any were ordered. The radiology ingredient specialist also reviewed them. If there is a change in the findings, you will be notified in 48 hours when at all possible. 3. If a lab test or culture has been done, your results will be reviewed and you will be notified if you need a change in treatment. 4. Follow instructions verbalized to you and refer to the printouts if needed. ADDITIONAL INSTRUCTIONS AND INFORMATION: 1. Your care today has been supervised by a physician who is specially trained in emergency care. Many problems require more than one evaluation for a complete diagnosis and treatment. We recommend that you schedule your follow up appointment as recommended to ensure complete treatment of you illness or injury. If you are unable to obtain follow up care and continue to have a problem, or if your condition worsens, we recommend that you return to the ED. 2. We are not able to safely determine your condition over the phone nor are we able to give sound medical advice over the phone. For these safety reasons, if you call for medical advice we will ask you to come to the ED for further evaluation. 3. If you have any questions regarding these discharge instructions please call the ED at [phone]. SAFETY INFORMATION: In the interest of safety, wellness, and injury prevention; we encourage you to wear your seat belt, if you smoke; quite smoking, and we encourage family to use a protective helmet for bicycling and other sporting events that present an increased risk for head injury. IF YOUR SYMPTOMS WORSEN OR NEW SYMPTOMS DEVELOP, OR YOU HAVE CONCERNS ABOUT YOUR CONDITION; OR IF YOUR CONDITION WORSENS WHILE YOU ARE WAITING FOR YOUR FOLLOW UP APPOINTMENT; EITHER CONTACT YOUR PRIMARY CARE DOCTOR, THE PHYSICIAN WHOSE NAME AND NUMBER YOU WERE GIVEN, OR RETURN TO THE ED IMMEDIATELY. DANIEL QUINONEZ Aug 06, 2021 18:51
[2021-08-06 19:43] VITALS: BP 165/90
[2021-08-06] MEDS: clonazePAM 1 MG TABLET PO PRN (19:43)
== END 2021-08-06 19:44 | disposition home or self-care (01) ==
LOC: ER 16:26
DX: F41.8 Other specified anxiety disorders (principal); I10 Essential (primary) hypertension; G43.909 Migraine, unspecified, not intractable, without status migrainosus; F43.10 Post-traumatic stress disorder, unspecified; Z88.8 Allergy status to other drugs, medicaments and biological substances; Z88.1 Allergy status to other antibiotic agents; Z88.2 Allergy status to sulfonamides; Z91.018 Allergy to other foods
CPT/HCPCS: 99283

== ENCOUNTER 2021-09-17 12:34 | Emergency (ER) | payer MEDICARE ==
[~2021-09-17] VITALS: Ht 160 cm; Wt 103.1 kg
[2021-09-17] MEDS ORDERED: METOCLOPRAMIDE HCL 10 MG/2 ML VIAL. IVP ONE (13:00)
[2021-09-17] MEDS ORDERED: diphenhydrAMINE 50 MG/ML VIAL IVP ONE (13:00)
[2021-09-17] MEDS ORDERED: KETOROLAC 30 MG/ML VIAL. IVP ONE (13:00)
[2021-09-17] MEDS ORDERED: IV NORMAL SALINE 1,000ML 1,000 ML IV ONE (13:00)
--- NOTE | 2021-09-17 13:07 | PHYS DOC ---
Past History Past Medical History: Anxiety, Depression, Hypertension, Migraines, Seizure Additional Past Medical Histor: adhd, psuedoseizures Past Surgical History: Cholecystectomy, Hysterectomy, Other Additional Past Surgical Histo: shoulder replacement right side Alcohol Use: None General Adult EDM: Chief Complaint: HEADACHE HPI: HPI: 65-year-old female presents with headache. She describes it as a frontal tight band sensation. She has had it for 3 days. She has a history of migraine headaches. She typically takes Topamax but she ran out and cannot afford a refill yet. She denies any falls or trauma. She is allergic to Imitrex. She denies fever or chills. Review of Systems: Review of Systems: Constitutional: Denies fever or chills Eyes: Denies change in visual acuity HENT: Denies nasal congestion or sore throat Respiratory: Denies cough or shortness of breath Cardiovascular: Denies chest pain or edema GI: Denies abdominal pain, nausea, vomiting, bloody stools or diarrhea : Denies dysuria Musculoskeletal: Denies back pain or joint pain Integument: Denies rash Neurologic: Headache. Denies focal weakness or sensory changes Endocrine: Denies polyuria or polydipsia Lymphatic: Denies swollen glands Psychiatric: Denies depression or anxiety Current Medications: Current Meds: Current Medications Medications (Trade) Dose Ordered Sig/Marshall Start Time Stop Time Status Last Admin Dose Admin Diphenhydramine HCl (Benadryl) 25 mg 1X ONCE 09/17/21 13:00 09/17/21 13:01 UNV Ketorolac Tromethamine (Toradol 30mg Vial) 30 mg 1X ONCE 09/17/21 13:00 09/17/21 13:01 UNV Metoclopramide HCl (Reglan Vial) 10 mg 1X ONCE 09/17/21 13:00 09/17/21 13:01 UNV Sodium Chloride 1,000 ml @ 1,000 mls/hr 1X ONCE 09/17/21 13:00 09/17/21 13:59 UNV Allergies: Allergies: Allergies Coded Allergies Type Severity Reaction Last Updated Verified allopurinol Allergy Intermediate 06/25/21 Yes doxycycline Allergy Intermediate 06/25/21 Yes sulfamethoxazole Allergy Intermediate 06/25/21 Yes sumatriptan Allergy Intermediate ALLERGIC TO "TRIPTANS" 04/06/21 Yes trimethoprim Allergy Intermediate 06/25/21 Yes pecan nut Allergy Unknown 06/25/21 Yes Physical Exam: PE: Constitutional: Well developed, well nourished, no acute distress, non-toxic appearance. [] HENT: Normocephalic, atraumatic, bilateral external ears normal, oropharynx moist, no oral exudates, nose normal. [] Eyes: PERRLA, EOMI, conjunctiva normal, no discharge. Photophobia. [] Neck: Normal range of motion, no tenderness, supple, no stridor. [] Cardiovascular: Heart rate regular rhythm, no murmur [] Lungs & Thorax: Bilateral breath sounds clear to auscultation [] Abdomen: Bowel sounds normal, soft, no tenderness, no masses, no pulsatile masses. [] Skin: Warm, dry, no erythema, no rash. [] Back: No tenderness, no CVA tenderness. [] Extremities: No tenderness, no cyanosis, no clubbing, ROM intact, no edema. [] Neurologic: Alert and oriented X 3, normal motor function, normal sensory function, no focal deficits noted. [] Psychologic: Affect normal, judgement normal, mood normal. [] Current Patient Data: Vital Signs: Vital Signs Date Time Temp Pulse Resp B/P (MAP) Pulse Ox O2 Delivery O2 Flow Rate FiO2 09/17/21 12:48 99.0 68 16 159/84 (109) 97 Room Air EKG: EKG: [] Radiology/Procedures: Radiology/Procedures: [] Heart Score: C/O Chest Pain: N/A Risk Factors: Risk Factors: DM, Current or recent (<one month) smoker, HTN, HLP, family histo ry of CAD, obesity. Risk Scores: Score 0 - 3: 2.5% MACE over next 6 weeks - Discharge Home Score 4 - 6: 20.3% MACE over next 6 weeks - Admit for Clinical Observation Score 7 - 10: 72.7% MACE over next 6 weeks - Early Invasive Strategies Course & Med Decision Making: Course & Med Decision Making Pertinent Labs and Imaging studies reviewed. (See chart for details) For the patient's headache I have given 1 L normal saline, 30 mg of Toradol, 25 mg of Benadryl, 10 mg of Reglan. Labs are unremarkable. The patient's headache went from a 9 to a 7. I have added 2 mg of morphine. This is usually helped the patient and she states not having rebound in the past. The patient is stable for discharge at this time. [] Dragon Disclaimer: Dragon Disclaimer: This electronic medical record was generated, in whole or in part, using a voice recognition dictation system. Departure Departure: Impression: Primary Impression: Migraine headache Disposition: HOME / SELF CARE / HOMELESS Condition: IMPROVED Referrals: EVELYN JORGENSEN (PCP) Patient Instructions: Migraine Headache, [id number] ELLIS HUGHES DO September 17, 2021 13:07
[2021-09-17 13:37] LABS: BASO % 1 % (0-3); EOS # 0.1 x10^3/uL (0.0-0.7); EOS % 1 % (0-3); HEMATOCRIT 35.5 % (36.0-47.0); HEMOGLOBIN 11.6 g/dL (12.0-15.5); LYMPH # 2.1 x10^3/uL (1.0-4.8); LYMPH % 32 % (24-48); MEAN CORPUSCULAR HEMOGLOBIN 28 pg (25-35); MEAN CORPUSCULAR HGB CONC 33 g/dL (31-37); MEAN CORPUSCULAR VOLUME 87 fL (79-100); MONO # 0.6 x10^3/uL (0.0-1.1); MONO % 9 % (0-9); NEUT # 3.7 x10^3uL (1.8-7.7); NEUT % 57 % (31-73); PLATELET COUNT 207 x10^3/uL (140-400); RED CELL DISTRIBUTION WIDTH 14.9 % (11.5-14.5); WHITE BLOOD COUNT 6.5 x10^3/uL (4.0-11.0)
[2021-09-17 13:45] LABS: CALCIUM 8.7 mg/dL (8.5-10.1); CREATININE 0.9 mg/dL (0.6-1.0); GFR 63.2; POTASSIUM 3.6 mmol/L (3.5-5.1)
[2021-09-17 13:50] LABS: ALBUMIN 3.4 g/dL (3.4-5.0); ALBUMIN/GLOBULIN RATIO 1.1 (1.0-1.7); TOTAL BILIRUBIN 0.3 mg/dL (0.2-1.0); TOTAL PROTEIN 6.4 g/dL (6.4-8.2)
[2021-09-17] MEDS ORDERED: MORPHINE SULFATE 2 MG/ML DISP.SYRIN. IV ONE (15:00)
[2021-09-17 15:35] VITALS: BP 148/81
== END 2021-09-17 16:05 | disposition home or self-care (01) ==
LOC: ER 12:34
DX: G43.909 Migraine, unspecified, not intractable, without status migrainosus (principal); I10 Essential (primary) hypertension; F41.9 Anxiety disorder, unspecified; F32.9 Major depressive disorder, single episode, unspecified; Z88.1 Allergy status to other antibiotic agents; Z88.8 Allergy status to other drugs, medicaments and biological substances; Z88.2 Allergy status to sulfonamides; Z91.018 Allergy to other foods
CPT/HCPCS: 36415; 80053; 85025; 96361; 96374; 96375; 99283; J1200; J1885; J2270; J2765; J7030